=== PATIENT | female | born 1985 | race Hispanic/Latino ===

== ENCOUNTER 2018-11-12 13:52 | Emergency (ER) | payer SELFPAY ==
--- NOTE | 2018-11-12 15:58 | EDPHYS ---
Physician Documentation [facility] Name: Michaelle Vega Age: 33 yrs Sex: Female : 1985 Arrival Date: 11/12/2018 Time: 13:53 Bed 15 Private MD: ED Physician Wild Goode HPI: 11/12 15:56 This 33 yrs old Female presents to ER via Ambulatory with complaints of Rash - pm1 Painful. 15:56 The patient's rash thought to be caused by an unknown cause. The rash is located on the pm1 anterior aspect of right lateral abdomen. The rash can be described as vesicular. Onset: The symptoms/episode began/occurred yesterday. Associated signs and symptoms: Pertinent positives: Pain. Severity of symptoms: in the emergency department the symptoms are worse. Treatment given at home: None. The patient has not experienced similar symptoms in the past. The patient has not recently seen a physician. Pain radiating on right flank with painful rash on right lower abdominal area. 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 - Social history:: Smoking status: Patient/guardian denies using tobacco. - Ebola Screening: : Patient denies travel to an Ebola-affected area in the 21 days before illness onset. ROS: 15:56 Constitutional: Negative for fever, chills, and weight loss, Eyes: Negative for injury, pm1 pain, redness, and discharge, ENT: Negative for injury, pain, and discharge, Neck: Negative for injury, pain, and swelling, Cardiovascular: Negative for chest pain, palpitations, and edema, Respiratory: Negative for shortness of breath, cough, wheezing, and pleuritic chest pain, Abdomen/GI: Negative for abdominal pain, nausea, vomiting, diarrhea, and constipation, Back: Negative for injury and pain, MS/Extremity: Negative for injury and deformity. 15:56 Neuro: Negative for headache, weakness, numbness, tingling, and seizure. 15:56 Skin: Positive for rash, of the anterior aspect of right lateral abdomen and right lower quadrant. Exam: 15:56 Constitutional: This is a well developed, well nourished patient who is awake, alert, pm1 and in no acute distress. Head/Face: Normocephalic, atraumatic. Neck: Trachea midline, no thyromegaly or masses palpated, and no cervical lymphadenopathy. Supple, full range of motion without nuchal rigidity, or vertebral point tenderness. No Meningismus. Chest/axilla: Normal chest wall appearance and motion. Nontender with no deformity. No lesions are appreciated. Cardiovascular: Regular rate and rhythm with a normal S1 and S2. No gallops, murmurs, or rubs. Normal PMI, no JVD. No pulse deficits. Respiratory: Lungs have equal breath sounds bilaterally, clear to auscultation and percussion. No rales, rhonchi or wheezes noted. No increased work of breathing, no retractions or nasal flaring. Abdomen/GI: Soft, non-tender, with normal bowel sounds. No distension or tympany. No guarding or rebound. No evidence of tenderness throughout. Back: No spinal tenderness. No costovertebral tenderness. Full range of motion. 15:56 Skin: Appearance: normal except for affected area, consistent with zoster, on the anterior aspect of right lateral abdomen and right lower quadrant. Vital Signs: 14:02 BP 125 / 75; Pulse 65; Resp 18; Temp 98.4(TE); Pulse Ox 98% on R/A; Weight 63.5 kg (R); tw2 Height 5 ft. 4 in. (162.56 cm) (R); Pain 8/10; 16:13 BP 118 / 72; Pulse 67; Resp 18; Temp 97.8; Pulse Ox 99% on R/A; ph 14:02 Body Mass Index 24.03 (63.50 kg, 162.56 cm) tw2 MDM: 15:56 Patient medically screened. pm1 15:56 Data reviewed: vital signs. Data interpreted: Pulse oximetry: on room air is 98 %. pm1 Interpretation: normal. Counseling: I had a detailed discussion with the patient and/or guardian regarding: the historical points, exam findings, and any diagnostic results supporting the discharge/admit diagnosis, the need for outpatient follow up, to return to the emergency department if symptoms worsen or persist or if there are any questions or concerns that arise at home. Administered Medications: 16:12 Drug: Valtrex 1000 mg Route: PO; ph 16:12 Follow up: Response: No adverse reaction; Medication administered at discharge. ph 16:12 Drug: Fitzgerald 5 mg-325 mg 1 tabs Route: PO; ph 16:12 Follow up: Response: No adverse reaction; Medication administered at discharge. ph Disposition: 11/12/18 15:57 Discharged to Home. Impression: Zoster [herpes zoster]. - Condition is Stable. - Discharge Instructions: Shingles. - Prescriptions for Tylenol- Codeine #3 300-30 mg Oral Tablet - take 2 tablets by ORAL route every 6 hours As needed; 20 tablet. Valtrex 1 g Oral Tablet - take 1 tablet by ORAL route every 8 hours for 7 days; 21 tablet. - Medication Reconciliation Form, Thank You Letter, Antibiotic Education, Prescription Opioid Use form. - Follow up: Emergency Department; When: As needed; Reason: Worsening of condition. Follow up: Private Physician; When: 2 - 3 days; Reason: Recheck today's complaints, Continuance of care, Re-evaluation by your physician. - Problem is new. - Symptoms have improved. Addendum: 11/14/2018 15:35 Co-signature as Attending Physician, Wild Goode MD. g s Signatures: Tamica Crouch RN RN Teodoro Henry NP PORTABLE TRACKMAN pm1 Tangela Wiggins RN RN tw2 Wild Goode MD MD Corrections: (The following items were deleted from the chart) 11/12 16:14 15:57 11/12/2018 15:57 Discharged to Home. Impression: Zoster [herpes zoster]. ph Condition is Stable. Forms are Medication Reconciliation Form, Thank You Letter, Antibiotic Education, Prescription Opioid Use. Follow up: Emergency Department; When: As needed; Reason: Worsening of condition. Follow up: Private Physician; When: 2 - 3 days; Reason: Recheck today's complaints, Continuance of care, Re-evaluation by your physician. Problem is new. Symptoms have improved. pm1
--- NOTE | 2018-11-12 15:58 | ER ---
Nurse's Notes [facility] Name: Michaelle Vega Age: 33 yrs Sex: Female : 1985 Arrival Date: 11/12/2018 Time: 13:53 Bed 15 Private MD: Diagnosis: Zoster [herpes zoster] Presentation: 11/12 14:01 Presenting complaint: Patient states: i have a rash on my right side and my back cruz, tw2 i think its the shingles. Transition of care: patient was not received from another setting of care. Onset of symptoms was November 12, 2018. Risk Assessment: Do you want to hurt yourself or someone else? Patient reports no desire to harm self or others. Initial Sepsis Screen: Does the patient meet any 2 criteria? No. Patient's initial sepsis screen is negative. Does the patient have a suspected source of infection? No. Patient's initial sepsis screen is negative. Care prior to arrival: None. 14:01 Method Of Arrival: Ambulatory tw2 14:01 Acuity: RAJESH 4 tw2 14:04 Note "i even had the chickenpox when i was little". tw2 Triage Assessment: 14:03 General: Appears in no apparent distress. Behavior is calm, cooperative, appropriate tw2 for age. Pain: Complains of pain in right lower quadrant. Derm: Reports increased pain that is 7 out of 10 on a pain scale. 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 - Social history:: Smoking status: Patient/guardian denies using tobacco. - Ebola Screening: : Patient denies travel to an Ebola-affected area in the 21 days before illness onset. Screenin:32 Abuse screen: Denies threats or abuse. Denies injuries from another. Nutritional ph screening: No deficits noted. Tuberculosis screening: No symptoms or risk factors identified. Fall Risk None identified. Assessment: 15:40 General: Appears in no apparent distress. uncomfortable, slender, well groomed, ph Behavior is calm, cooperative, appropriate for age, Denies fever. Pain: Complains of pain in posterior aspect of right lateral abdomen, anterior aspect of right lateral abdomen and right lower quadrant. Neuro: Level of Consciousness is awake, alert, obeys commands, Oriented to person, place, time, situation. Cardiovascular: Capillary refill < 3 seconds in bilateral fingers Patient's skin is warm and dry. Respiratory: Airway is patent Respiratory effort is even, unlabored. Derm: Skin is healthy with good turgor, Skin is pink, warm \\T\\ dry. Rash noted that is itchy, red, raised, vesicular, on right lower quadrant Reports burning, itching. Musculoskeletal: Circulation, motion, and sensation intact. Range of motion: intact in all extremities. Vital Signs: 14:02 BP 125 / 75; Pulse 65; Resp 18; Temp 98.4(TE); Pulse Ox 98% on R/A; Weight 63.5 kg (R); tw2 Height 5 ft. 4 in. (162.56 cm) (R); Pain 8/10; 16:13 BP 118 / 72; Pulse 67; Resp 18; Temp 97.8; Pulse Ox 99% on R/A; ph 14:02 Body Mass Index 24.03 (63.50 kg, 162.56 cm) tw2 ED Course: 13:53 Patient arrived in ED. as 14:02 Triage completed. tw2 14:03 Arm band placed on. tw2 15:31 Tamica Crouch, SAULO is Primary Nurse. ph 15:38 Teodoro Henry NP is PHCP. pm1 15:38 Wild Goode MD is Attending Physician. pm1 15:58 Patient has correct armband on for positive identification. Bed in low position. Call ph light in reach. Side rails up X 1. Noise minimized. Warm blanket given. 15:58 No provider procedures requiring assistance completed. Patient did not have IV access ph during this emergency room visit. Administered Medications: 16:12 Drug: Valtrex 1000 mg Route: PO; ph 16:12 Follow up: Response: No adverse reaction; Medication administered at discharge. ph 16:12 Drug: Magnolia 5 mg-325 mg 1 tabs Route: PO; ph 16:12 Follow up: Response: No adverse reaction; Medication administered at discharge. ph Outcome: 15:57 Discharge ordered by . pm1 16:13 Discharged to home ambulatory, with friend. ph 16:13 Condition: good 16:13 Discharge instructions given to patient, Instructed on discharge instructions, follow up and referral plans. medication usage, Demonstrated understanding of instructions, follow-up care, medications, Prescriptions given X 2. 16:14 Patient left the ED. ph Signatures: Guerita Fuller Patricia, RN RN Teodoro Henry, MALENA MAINTENANCE TRUCK DRIVER pm1 Tangela Wiggins RN RN tw2
[2018-11-12] MEDS ORDERED: VALACYCLOVIR 500 MG TAB ONE (16:07)
[2018-11-12] MEDS ORDERED: HYDROCODONE/APAP 5/325 MG TAB ONE (16:07)
== END 2018-11-12 16:14 | disposition home or self-care (01) ==
LOC: ER 13:52
DX: B02.9 Zoster without complications (principal)
CPT/HCPCS: 99283

== ENCOUNTER 2023-02-06 18:23 | Emergency (ER) | payer SELFPAY ==
--- OUTSIDE RECORDS SUMMARY | 2023-02-06 18:26 | XMS REPORT | Continuity of Care Document ---
:1985 Author Organization [facility] t Address [address] [facility] [place] [address] Care Team Providers Name Role Phone Pcp, Patient Does Not Have Primary Care Physician Unavaildavid e KATHY PAK Attending Clinician Unavailable Td Booth MD Attending Clinician Dennis Key MD Attending Clinician Kathy Pak MD Attending Clinician Harley Kay MD Attending Clinician Keli Vora I Attending Clinician Cezar Vera MD Attending Clinician KELI HUSTON I Attending Clinician Unavailable APARNA WHITE Attending Clinician Unavailable Aparna White MD Attending Clinician JÚNIOR ARAIZA Attending Clinician Unavailable Star Tapia Attending Clinician Unavailable Oh Helm Attending Clinician Unavailable Eva Ryder Attending Clinician Unavailable PEYMAN HAHN Admitting Clinician Unavailable Kathy Pak MD Admitting Clinician Physician, No Primary or Family Admitting Clinician [facility] Payers Payer Name Policy Type Policy Number Effective Date Expiration Date S ourrisa Problems Condition Condition Condition Status Onset Resolution Last Treating Co mments Source Name Details Category Date Date Treatment Clinician Date Cholecysti Cholecysti Disease Resolve 2022-11-18 2022-11-18 [facility] t[facility] tis d 11-17 00:00:00 09:39:10 Health 00:00: 00 Generalize Generalize Disease Resolve 2022-11-18 2022-11-18 [facility] d d d 11-17 00:00:00 09:39:11 Health abdominal abdominal 00:00: pain pain 00 Acute Acute Disease Resolve 2022-11-18 2022-11-18 Naun cholecysti cholecysti d 11-16 00:00:00 09:39:08 Health tis tis 00:00: 00 History of History of Disease Resolve 2022-11-18 2022-11-18 Naun cholelithi cholelithi d 00:00:00 09:39:08 Health asis asis Nausea and Nausea and Disease Resolve 2022-11-18 2022-11-18 Naun vomiting vomiting d 00:00:00 09:39:12 He alth RUQ pain RUQ pain Disease Resolve 2022-11-18 2022-11-18 Naun d 00:00:00 09:39:09 Health Allergies, Adverse Reactions, Alerts Allergy Allergy Status Severity Reaction(s) Onset Inactive Treating Comm ents Source Name Type Date Date Clinician No Known DA [facility] 00:[facility]: [address] No Known DA Active U NONE [facility] 05[facility]24 [facility] Intolera 00:00: [address] No Known DA [facility] Contrast 05-06 [facility] Allergie 00:00: [address] No Known DA [facility] Allergie 00:00: [address] No Known DA [facility] Food 05[facility]06 [facility]ergie 00:00: [address] No Known DA [facility] Other 05-06 [facility] Allergie 00:00: [address] Social History Social Habit Start Date Stop Date Quantity Comments Source Sexual orientation [facility] History of Social 2022-11-14 2022-11-14 [facility] function 00:00:00 00:00:00 Alcohol intake 2020-10-28 2020-10-28 Current [facility] 00:00:00 00:00:00 non-drinker of alcohol (finding) Sex Ass[birth year] At [birth year] Na[facility] Mabry alth 00:00:00 00:00:00 Smoking Status Start Date Stop Date Source Never smoked tobacco [facility] Medications Ordered Filled Start Stop Current Ordering Indication Dosage Frequency Signature Comments Components Source Medication Medication Date Date Medication? Clinician (SIG) Name Name HYDROMORPHO 2022- No 1 dose, Fraser rris NE (PF) 0.5 11-18 [facility] MG/0.5 ML 10:24: 10:30 on Helga INJECTION 33 :00 11/18/22 at SYRINGE 1024, Pyxis Until Helga Override 11/18/22 at 1030 HYDROmorpho 2022- No .2mg 0.2 mg Gerald ris ne (PF) 0.5 11-18 (0.06795 Hea lth mg/0.5 mL 10:16: 11:00 mg/kg), IV injection 01 :00 Push, 0.2 mg EVERY 15 MIN PRN, 3 doses, Starting on Helga 11/18/22 at 1016, Until Helga 11/18/22 at 1100, Severe Pain (7-10) - 2nd Line, Routine, PACU/Recov linnette neostigmine 2022- No Intravenou Naun 1 mg/mL 11-18 s, PRN, Health injection 09:20: 09:56 Starting 00 :19 on Helga 11/18/22 at 0920, Until Helga 11/18/22 at 0956, Routine, Anesthesia Intra-op glycopyrrol 2022- No Intravenou Naun ate 11-18 s, PRN, Health (ROBINUL) 09:20: 09:56 Starting injection 00 :19 on Helga 11/18/22 at 0920, Until Helga 11/18/22 at 0956, Routine, Anesthesia Intra-op ondansetron 2022- No Intravenou [facility] (ZOFRAN) 11-18 s, PRN, Health injection 09:10: 09:56 Starting 00 :19 on Helga 11/18/22 at 0910, Until Helga 11/18/22 at 0956, Routine, Anesthesia Intra-op dexAMETHaso 2022- No Intravenou [facility] ne 11-18 s, PRN, Health (DECADRON) 08:18: 09:56 Starting injection 00 :19 on Helga 11/18/22 at 0818, Until Helga 11/18/22 at 0956, Routine, Anesthesia Intra-op HYDROmorpho 2022- No Intravenou [facility] ne 1 mg/mL 11-18 s, PRN, Healt h injection 08:11: 09:56 Starting 00 :19 on Helga 11/18/22 at 0811, Until Helga 11/18/22 at 0956, STAT, Anesthesia Intra-op fentaNYL 2022- No Intravenou Fraser rris injection 11-18 s, PRN, Health 08:00: 09:56 Starting 00 :19 on Helga 11/18/22 at 0800, Until Helga 11/18/22 at 0956, STAT, Anesthesia Intra-op BUPivacaine 2022- No PRN, Harri s -PF 11-18 Starting Health (SENSORCAIN 07:55: 09:50 on Helga E-MPF) 0.25 00 :15 11/18/22 at % (2.5 0755, mg/mL) Until Helga injection 11/18/22 at 0950, Routine, Intra-op cefTRIAXone 2022- No Intravenou [facility] (ROCEPHIN) 11-18 s, PRN, Healt h 1 g in D5W 07:55: 09:56 Starting 50 mL IVPB 00 :19 on Helga (PREMIX) 11/18/22 at 0755, Until Helga 11/18/22 at 0956, Routine 0.9 % NaCl 2022- No PRN, [facility] 0.9 % 11-18 Starting Health irrigation 07:45: 09:50 on Helga solution 00 :15 11/18/22 at (bottle) 0745, Soln Until Helga 11/18/22 at 0950, Routine, Intra-op propofoL 10 2022- No Intravenou [facility] mg/mL IV 8 08-24 s, PRN, Health DRIP 07:38: 09:56 Starting (PREMIX) 00 :19 on Helga 11/18/22 at 0738, Until Helga 11/18/22 at 0956, Routine, Anesthesia Intra-op lidocaine 2022- No Intravenou H arris (PF) 11-18-24 s, PRN, Health (XYLOCAINE) 07:38: 09:56 Starting 20 mg/mL (2 00 :19 on Helga %) 11/18/22 at injection 0738, Until Helga 11/18/22 at 0956, Routine, Anesthesia Intra-op rocuronium 2022- No Intravenou [facility] injection 11-18-24 s, PRN, Health 07:38: 09:56 Starting 00 :19 on Helga 11/18/22 at 0738, Until Helga 11/18/22 at 0956, Routine, Anesthesia Intra-op midazolam 2022- No Intravenou H arris (PF) 11-18 08-24 s, PRN, Health (VERSED) 07:31: 09:56 Starting injection 00 :19 on Helga 11/18/22 at 0731, Until Helga 11/18/22 at 0956, Routine, Anesthesia Intra-op lactated 2022- No Intravenou Fraser rris Ringers 11-18 08-24 s, Health infusion 07:00: 09:56 Starting 00 :19 on Helga 11/18/22 at 0700, Until Helga 11/18/22 at 0956, Anesthesia Intra-op traMADol Yes [id number] 50mg Take 1 Gerald ris (ULTRAM) 50 8-24 tablet by Hea lth mg tablet 00:00: mouth 00 every 6 hours as needed for Pain traMADol Yes [id number] 50mg Take 1 Gerald ris (ULTRAM) 50 8-24 tablet by Hea lth mg tablet 00:00: mouth 00 every 6 hours as needed for Pain traMADol Yes Cholecystit 50mg Take 1 [facility] (ULTRAM) 50 11-18 is tablet by Hea lth mg tablet 00:00: mouth 00 every 6 hours as needed for Pain traMADol 2022- No Cholecystit 50mg Take 1 [facility] (ULTRAM) 50 11-18 is tablet by He alth mg tablet 00:00: 00:00 mouth 00 :00 every 6 hours as needed for Pain metroNIDAZO 2022- No 500mg 500 mg Fraser rris LE (FLAGYL) 11-17 (8.1 Health 500 mg in 13:00: 15:19 mg/kg), 0.9 % NaCl 00 :16 Intravenou 100 mL IVPB s, EVERY 8 (PREMIX) HOURS, 21 doses, First dose on Tue11/17/22 at 1300, Last dose on Tue11/24/22 at 0500, Administer over 1 Hours, Routine metroNIDAZO 2022- No 500mg 500 mg Fraser rris LE (FLAGYL) 11-17 (8.1 Health 500 mg in 13:00: 15:19 mg/kg), 0.9 % NaCl 00 :16 Intravenou 100 mL IVPB s, EVERY 8 (PREMIX) HOURS, 21 doses, First dose on Tue11/17/22 at 1300, Last dose on Tue11/24/22 at 0500, Administer over 1 Hours, Routine sennosides- 2022- No 1{tbl} QD 1 tablet, [facility] docusate 11-17 Oral, Health sodium 09:00: 18:50 DAILY, 30 (SENNA 00 :32 doses, PLUS) First dose 8.6-50 mg on Tue tablet 1 11/17/22 at tablet 0900, Last dose on Tue12/16/22 at 0900, STAT enoxaparin 2022- No 40mg QD 40 mg Harri s (LOVENOX) 11-17 (0.648 Health injection 09:00: 18:50 mg/kg), 40 mg 00 :32 Subcutaneo us, DAILY, 30 doses, First dose on Tue11/17/22 at 0900, Last dose on Tue12/16/22 at 0900, STAT polyethylen 2022- No 17g 17 g Harri s e glycol 11-17 (0.276 Health 3350 09:00: 18:50 g/kg), (GLYCOLAX) 00 :32 Oral, oral packet EVERY 17 g MORNING, 30 doses, First dose on Tue11/17/22 at 0900, Last dose on Tue12/16/22 at 0900, STAT sennosides- 2022- No 1{tbl} QD 1 tablet, [facility] docusate 11-17 Oral, Health sodium 09:00: 18:50 DAILY, 30 (SENNA 00 :32 doses, PLUS) First dose 8.6-50 mg on Tue tablet 1 11/17/22 at tablet 0900, Last dose on Tue12/16/22 at 0900, STAT enoxaparin 2022- No 40mg QD 40 mg Harri s (LOVENOX) 11-17 (0.648 Health injection 09:00: 18:50 mg/kg), 40 mg 00 :32 Subcutaneo us, DAILY, 30 doses, First dose on Tue11/17/22 at 0900, Last dose on Tue12/16/22 at 0900, STAT polyethylen 2022- No 17g 17 g Harri s e glycol 11-17 (0.276 Health 3350 09:00: 18:50 g/kg), (GLYCOLAX) 00 :32 Oral, oral packet EVERY 17 g MORNING, 30 doses, First dose on Tue11/17/22 at 0900, Last dose on Tue12/16/22 at 0900, STAT acetaminoph 2022- No 1000mg 1,000 mg [facility] en 11-17 (16.2 Health (TYLENOL) 07:44: 18:50 mg/kg), tablet 00 :32 Oral, 1,000 mg EVERY 6 HOURS, 120 doses, First dose on Tue11/17/22 at 0744, Last dose on Tue12/17/22 at 0000, STAT acetaminoph 0 2022- No 1000mg 1,000 mg [facility] en 11-17 (16.2 Health (TYLENOL) 07:44: 18:50 mg/kg), tablet 00 :32 Oral, 1,000 mg EVERY 6 HOURS, 120 doses, First dose on Tue11/17/22 at 0744, Last dose on Tue12/17/22 at 0000, STAT lactated No at 100 [facility] Ringers 11-17 mL/hr, Health infusion 07:43: 15:19 Intravenou 00 :16 s, CONTINUOUS , Starting on Tue11/17/22 at 0743, Until Tue11/18/22 at 1519 metroNIDAZO 2022- No 500mg 500 mg Fraser rris LE (FLAGYL) 11-17 (8.1 Health tablet 500 07:43: 11:18 mg/kg), mg 00 :15 Oral, EVERY 8 HOURS, 21 doses, First dose on Tue11/17/22 at 0743, Last dose on Tue11/23/22 at 2100, STAT traMADol 2022- No 50mg 50 mg Naun (ULTRAM) 11-17 (0.81 Health tablet 50 07:42: 18:50 mg/kg), mg 57 :32 Oral, 4 TIMES DAILY PRN, Starting on Tue11/17/22 at 0742, Until Tue11/18/22 at 1850, Moderate Pain (4-6) - 1st Line, STAT oxyCODONE 2022- No 5mg 5 mg Naun (ROXICODONE 11-17 (0.081 Healt h ) tablet 5 07:42: 18:50 mg/kg), mg 57 :32 Oral, EVERY 6 HOURS PRN, Starting on Tue11/17/22 at 0742, Until Tue11/18/22 at 1850, Severe Pain (7-10) - 1st Line, STAT traMADol 2022- No 50mg 50 mg [facility] (ULTRAM) 11-17 (0.81 Health tablet 50 07:42: 18:50 mg/kg), mg 57 :32 Oral, 4 TIMES DAILY PRN, Starting on Tue11/17/22 at 0742, Until Tue11/18/22 at 1850, Moderate Pain (4-6) - 1st Line, STAT oxyCODONE 2022- No 5mg 5 mg [facility] (ROXICODONE 11-17 (0.081 Healt h ) tablet 5 07:42: 18:50 mg/kg), mg 57 :32 Oral, EVERY 6 HOURS PRN, Starting on Tue11/17/22 at 0742, Until Tue11/18/22 at 1850, Severe Pain (7-10) - 1st Line, STAT ondansetron 2022- No 4mg 4 mg Harri s (ZOFRAN-ODT 11-17 (0.0648 Heal ) 07:42: 18:50 mg/kg), disintegrat 49 :32 Oral, 2 ing tablet TIMES 4 mg DAILY PRN, Starting on Tue11/17/22 at 0742, Until Tue11/18/22 at 1850, nausea and vomiting, STAT ondansetron 2022- No 4mg 4 mg Harri s (ZOFRAN-ODT 11-17 (0.0648 Heal ) 07:42: 18:50 mg/kg), disintegrat 49 :32 Oral, 2 ing tablet TIMES 4 mg DAILY PRN, Starting on Tue11/17/22 at 0742, Until Tue11/18/22 at 1850, nausea and vomiting, STAT HYDROmorpho 2022- No 1mg 1 mg Harri s ne 1 mg/mL 11-16 (0.0162 Healt h injection 1 22:23: 22:39 mg/kg), IV mg 00 :00 Push, ONCE, 1 dose, On Tue11/16/22 at 2223, STAT sodium 2022- No 1000mL at 999 [facility] chloride 11-16 mL/hr, Health 0.9 % 20:49: 22:03 Intravenou infusion 00 :00 s, ONCE, 1 1,000 mL dose, On Tue11/16/22 at 2048 ondansetron 2022-0 2022- No 4mg 4 mg Harri s (ZOFRAN) 11-16 (0.0648 Health injection 4 20:49: 21:02 mg/kg), IV mg 00 :00 Push, ONCE, 1 dose, On Tue11/16/22 at 2048, STAT morphine 4 2022- No 4mg 4 mg [facility] mg/mL 11-16 (0.0648 Health injection 4 20:49: 21:02 mg/kg), IV mg 00 :00 Push, ONCE, 1 dose, On 11/16/22 at 2049, STAT ondansetron No 4mg 4 mg Harri s (ZOFRAN) 11-14 (0.0648 Health injection 4 03:18: 03:37 mg/kg), IV mg 00 :00 Push, ONCE, 1 dose, On 11/14/22 at 0318, STAT morphine 4 2022- No 4mg 4 mg [facility] mg/mL 11-14 (0.0648 Health injection 4 03:18: 03:37 mg/kg), IV mg 00 :00 Push, ONCE, 1 dose, On 11/14/22 at 0318, STAT dicyclomine Yes [id number] 10mg Take 1 [facility] (BENTYL) 10 8-20 capsule by He alth mg capsule 00:00: mouth 4 00 times daily (before meals and nightly) dicyclomine Yes [id number] 10mg Take 1 [facility] (BENTYL) 10 8-20 capsule by He alth mg capsule 00:00: mouth 4 00 times daily (before meals and nightly) dicyclomine 0 Yes [id number] 10mg Take 1 [facility] (BENTYL) 10 8-20 capsule by He alth mg capsule 00:00: mouth 4 00 times daily (before meals and nightly) dicyclomine Yes History of 10mg Take 1 [facility] (BENTYL) 10 8-20 cholelithia capsule by Health mg capsule 00:00: sis mouth 4 00 times daily (before meals and nightly) Vital Signs Vital Name Observation Time Observation Value Comments Source Systolic blood pressure 2022-11-18 11:39:00 139 mm[Hg] [facility] Diastolic blood pressure 2022-11-18 11:39:00 79 mm[Hg] [facility] Heart rate 2022-11-18 11:39:00 79 /min [facility] ealt Body temperature 2022-11-18 11:39:00 36.61 Ro [facility] Respiratory rate 2022-11-18 11:39:00 17 /min [facility] Oxygen saturation in 2022-11-18 11:39:00 96 /min [facility] Arterial blood by Pulse oximetry Body height 2022-11-18 06:20:00 162.6 cm [facility] Body weight 2022-11-18 06:20:00 68.04 kg [facility] BMI 2022-11-18 06:20:00 25.75 kg/m2 [facility] Systolic blood pressure 2022-11-18 11:39:00 139 mm[Hg] [facility] Diastolic blood pressure 2022-11-18 11:39:00 79 mm[Hg] [facility] Heart rate 2022-11-18 11:39:00 79 /min [facility] Body temperature 2022-11-18 11:39:00 36.61 Ro [facility] Respiratory rate 2022-11-18 11:39:00 17 /min [facility] Oxygen saturation in 2022-11-18 11:39:00 96 /min [facility] Arterial blood by Pulse oximetry Body height 2022-11-18 06:20:00 162.6 cm [facility] Body weight 2022-11-18 06:20:00 68.04 kg [facility] BMI 2022-11-18 06:20:00 25.75 kg/m2 [facility] Systolic blood pressure 2022-11-18 11:39:00 139 mm[Hg] [facility] Diastolic blood pressure 2022-11-18 11:39:00 79 mm[Hg] [facility] Heart rate 2022-11-18 11:39:00 79 /min [facility] Body temperature 2022-11-18 11:39:00 36.61 Ro [facility] Respiratory rate 2022-11-18 11:39:00 17 /min [facility] Oxygen saturation in 2022-11-18 11:39:00 96 /min [facility] Arterial blood by Pulse oximetry Body height 2022-11-18 06:20:00 162.6 cm [facility] Body weight 2022-11-18 06:20:00 68.04 kg [facility] BMI 2022-11-18 06:20:00 25.75 kg/m2 [facility] Systolic blood pressure 2022-11-18 10:15:00 143 mm[Hg] [facility] Diastolic blood pressure 2022-11-18 10:15:00 88 mm[Hg] [facility] Heart rate 2022-11-18 10:15:00 69 /min [facility]alt Respiratory rate 2022-11-18 10:15:00 13 /min [facility] Oxygen saturation in 2022-11-18 10:15:00 99 /min [facility] Arterial blood by Pulse oximetry Body temperature 2022-11-18 09:55:00 36.61 Ro [facility] Body height 2022-11-18 06:20:00 162.6 cm [facility] Body weight 2022-11-18 06:20:00 68.04 kg [facility] ealt BMI 2022-11-18 06:20:00 25.75 kg/m2 [facility] ealt Systolic blood pressure 2022-11-18 10:15:00 143 mm[Hg] [facility] Diastolic blood pressure 2022-11-18 10:15:00 88 mm[Hg] [facility] Heart rate 2022-11-18 10:15:00 69 /min [facility] Respiratory rate 2022-11-18 10:15:00 13 /min [facility] Oxygen saturation in 2022-11-18 10:15:00 99 /min [facility] Arterial blood by Pulse oximetry Body temperature 2022-11-18 09:55:00 36.61 Ro [facility] Body height 2022-11-18 06:20:00 162.6 cm [facility] Body weight 2022-11-18 06:20:00 68.04 kg [facility] BMI 2022-11-18 06:20:00 25.75 kg/m2 [facility] ealt Systolic blood pressure 2022-11-14 03:55:00 118 mm[Hg] [facility] Diastolic blood pressure 2022-11-14 03:55:00 79 mm[Hg] [facility] Heart rate 2022-11-14 03:55:00 64 /min [facility] ealt Body temperature 2022-11-14 03:55:00 36.39 Ro [facility] Respiratory rate 2022-11-14 03:55:00 17 /min [facility] Oxygen saturation in 2022-11-14 03:55:00 99 /min [facility] Arterial blood by Pulse oximetry Body height 2022-11-13 23:50:00 162.6 cm [facility] Body weight 2022-11-13 23:50:00 61.689 kg [facility] BMI 2022-11-13 23:50:00 23.34 kg/m2 [facility] Systolic blood pressure 2022-11-14 03:55:00 118 mm[Hg] [facility] Diastolic blood pressure 2022-11-14 03:55:00 79 mm[Hg] [facility] Heart rate 2022-11-14 03:55:00 64 /min [facility] Body temperature 2022-11-14 03:55:00 36.39 Ro [facility] Respiratory rate 2022-11-14 03:55:00 17 /min [facility] Oxygen saturation in 2022-11-14 03:55:00 99 /min [facility] Arterial blood by Pulse oximetry Body height 2022-11-13 23:50:00 162.6 cm [facility] Body weight 2022-11-13 23:50:00 61.689 kg [facility] BMI 2022-11-13 23:50:00 23.34 kg/m2 [facility] Systolic blood pressure 2022-11-14 03:55:00 118 mm[Hg] [facility] Diastolic blood pressure 2022-11-14 03:55:00 79 mm[Hg] [facility] Heart rate 2022-11-14 03:55:00 64 /min [facility] Body temperature 2022-11-14 03:55:00 36.39 Ro [facility] Respiratory rate 2022-11-14 03:55:00 17 /min [facility] Oxygen saturation in 2022-11-14 03:55:00 99 /min [facility] Arterial blood by Pulse oximetry Body height 2022-11-13 23:50:00 162.6 cm [facility] Body weight 2022-11-13 23:50:00 61.689 kg [facility] BMI 2022-11-13 23:50:00 23.34 kg/m2 [facility] Systolic blood pressure 2022-11-18 11:39:00 139 mm[Hg] [facility] Diastolic blood pressure 2022-11-18 11:39:00 79 mm[Hg] [facility] Heart rate 2022-11-18 11:39:00 79 /min [facility] Body temperature 2022-11-18 11:39:00 36.61 [facility] Respiratory rate 2022-11-18 11:39:00 17 /min [facility] Oxygen saturation in 2022-11-18 11:39:00 96 /min [facility] Arterial blood by Pulse oximetry Body height 2022-11-18 06:20:00 162.6 cm [facility] Body weight 2022-11-18 06:20:00 68.04 kg [facility] BMI 2022-11-18 06:20:00 25.75 kg/m2 [facility] Procedures Procedure Date / Time Performed Performing Clinician [facility] INFUSION PUMP 2022-11-18 13:12:16 Kathy Pak [facility] INFUSION PUMP 2022-11-18 13:12:16 Kathy Pak [facility] INFUSION PUMP 2022-11-18 13:12:16 Kathy Pak [facility] AIRWAY 2022-11-18 08:28:52 Delia Muller [facility] AIRWAY 2022-11-18 08:28:52 Delia Muller [facility] TISSUE EXAM 2022-11-18 08:18:00 Harley Kay [facility] TISSUE EXAM 2022-11-18 08:18:00 Harley Kay [facility] TISSUE EXAM 2022-11-18 08:18:00 Harley Kay [facility] LAP,CHOLECYSTECTOMY 2022-11-18 07:10:00 Harley Kay [facility] LAP,CHOLECYSTECTOMY 2022-11-18 07:10:00 Harley Kay [facility] LAP,CHOLECYSTECTOMY 2022-11-18 07:10:00 Harley Kay [facility] BASIC METABOLIC PANEL 2022-11-18 04:52:00 [facility] CBC/DIFF 2022-11-18 04:52:00 Peyman Hahn [facility] PT/INR 2022-11-18 04:52:00 Cezar Varela [facility] PTT 2022-11-18 04:52:00 Cezar Varela A [facility] CBC 2022-11-18 04:52:00 Jovani Peymanra Ebenezer [facility] lt BASIC METABOLIC PANEL 2022-11-18 04:52:00 Jovani Peyman Ebenezer Tapia [facility] CBC/DIFF 2022-11-18 04:52:00 Jovani Peyman [facility] PT/INR 2022-11-18 04:52:00 Valeria Crowley Cezar Buckner [facility] PTT 2022-11-18 04:52:00 Valeria Crowley Cezar Buckner [facility] CBC 2022-11-18 04:52:00 Jovani Peyman [facility] lth PT/INR 2022-11-18 04:52:00 Valeria Crowley Cezar Buckner [facility] PTT 2022-11-18 04:52:00 Valeria Crowley Cezar Buckner [facility] CBC/DIFF 2022-11-18 04:52:00 Jovani Peyman Ebenezer Naun [facility] BASIC METABOLIC PANEL 2022-11-18 04:52:00 Peyman Hahn Ebenezer Tapia [facility] CBC 2022-11-18 04:52:00 Jovani Peymanra Ebenezer [facility] lth ABO/RH CONFIRMATION 2022-11-17 11:17:[facility]22-11-17 11:17:00 [facility]RH [facility]FIRM[facility] 2022-11-17 11:17:[facility] TYPE AND SCREEN 2022-11-17 11:16:00 [facility]-11-17 11:16:00 [facility] TYPE AND SCREEN 2022-11-17 11:16:00 Troy [facility] T&S - COLLECTION 2022-11-17 11:16:00 [facility] 2022-11-17 11:16:00 Troy [facility] T&S - COLLECTION 2022-11-17 11:16:00 Troy [facility] CORONAVIRUS, COVID-19, JOSETTE 2022-11-17 06:36:00 Nwaozo, Glad C H arris [facility] SARS-COV-2, FLU A/B, RSV 2022-11-17 06:36:00 Nwaozo, Glad C [facility] Health CORONAVIRUS, COVID-19, JOSETTE 2022-11-17 06:36:00 Nwaozo, Glad C H virtua [facility] SARS-COV-2, FLU A/B, RSV 2022-11-17 06:36:00 Nwaozo, Glad C [facility] Health SARS-COV-2, FLU A/B, RSV 2022-11-17 06:36:00 Nwaozo, Glad C [facility] CORONAVIRUS, COVID-19, JOSETTE 2022-11-17 06:36:00 Nwaozo, Glad C [facility] U/S ABDOMEN LIMITED 2022-11-16 21:41:33 Emmy [facility] ealt U/S ABDOMEN LIMITED 2022-11-16 21:41:33 Emmy [facility] U/S ABDOMEN LIMITED 2022-11-16 21:41:33 Emmy [facility] ealt BASIC METABOLIC PANEL 2022-11-16 20:56:00 Emmy [facility] CBC/DIFF 2022-11-16 20:56:00 [facility] 2022-11-16 20:56:00 Emmy Td [facility] h LIVER PROFILE 2022-11-16 20:56:00 [facility]ANTITAT[facility] (ONLY 2022-11-16 20:56:[facility] CBC 2022-11-16 20:56:00 Emmy Td [facility] h BASIC METABOLIC PANEL 2022-11-16 20:56:00 Emmy [facility] CBC/DIFF 2022-11-16 20:56:00 [facility] 2022-11-16 20:56:00 Emmy [facility] h LIVER PROFILE 2022-11-16 20:56:00 Emmy Td [facility] BETA-HCG, QUANTITATIVE (ONLY 2022-11-16 20:56:00 Td Booth [facility] FOR ) CBC 2022-11-16 20:56:00 [facility]-16 20:56[facility]00 [facility] BASIC METABOLIC PANEL 2022-11-16 20:56:00 [facility] LIVER PROFILE 2022-11-16 20:56:00 [facility] 2022-11-16 20:56:00 Emmy, Td Magallon [facility] h BETA-HCG, QUANTITATIVE (ONLY 2022-11-16 20:56:00 [facility] CBC 2022-11-16 20:56:00 [facility] 2022-11-14 06:29:00 Júnior Araiza He alth COMPREHENSIVE METABOLIC 2022-11-14 06:29:00 Júnior [facility] PANEL COMPREHENSIVE METABOLIC 2022-11-14 06:29:00 [facility]únior [facility] PANEL LIPASE 2022-11-14 06:29:00 Júnior Araiza [facility] CBC/DIFF 2022-11-14 03:38:00 Júnior Araiza [facility] CBC 2022-11-14 03:38:00 Júnior Araiza [facility] CBC/DIFF 2022-11-14 03:38:00 Júnior Araiza He alth CBC 2022-11-14 03:38:00 Júnior Araiza He alth 12 LEAD EKG 2022-11-14 03:17:00 Júnior Araiza He alth 12 LEAD EKG 2022-11-14 03:17:00 Júnior Araiza [facility] URINALYSIS W/REFLEX TO URINE 2022-11-14 03:14:00 Estefani Araiza [facility] CULTURE URINALYSIS 2022-11-14 03:14:00 Júnior Araiza [facility] URINE CULTURE COLLECTION KIT 2022-11-14 03:14:00 Estefani Araiza [facility] URINALYSIS W/REFLEX TO URINE 2022-11-14 03:14:00 Mechelle Araiza [facility] CULTURE URINALYSIS 2022-11-14 03:14:00 Júnior Araiza [facility] URINE CULTURE COLLECTION KIT 2022-11-14 03:14:00 Mechelle Araiza [facility]/S ABDOMEN LIMITED 2022-11-14 02:58:06 Júnior Araiza [facility] U/S ABDOMEN LIMITED 2022-11-14 02:58:06 Júnior Araiza [facility] Plan of Care Planned Activity Planned Date Details Comments Source Future Scheduled Test 2022-11-26 00:00:00 IMM Influenza [facility] Seasonal (>/= 19 yrs) [code = IMM Influenza Seasonal (>/= 19 yrs)] Future Scheduled Test 2014 00:00:00 Screening for [facility] malignant neoplasm of cervix (procedure) [code = 470662269] Future Scheduled Test 2005 00:00:00 Screening for [facility] malignant neoplasm of cervix (procedure) [code = 178974612] Future Scheduled Test 1985-04-23 00:00:00 COVID-19 Vaccine (#1) [facility] [code = COVID-19 Vaccine (#1)] Encounters Start End Encounter Admission Attending Care Care Encounter Source Date/Time Date/Time Type Type Clinicians Facility Department ID 2022-11-16 2022-11-18 Outpatient 1 PASHA [facility] AVERY [id number] [place] 20:24:00 16:50:00 CHAVEZ [facility] 2022-11-16 2022-11-18 [facility] [id number] [place] 20:24:00 16:50:00 Encounter [place] [id number] [facility] Kathy Pak [facility] .[id number] 1404-08-22 2022-11-18 [facility] [id number] [place] 20:24:00 16:50:00 Encounter [place] [facility] Pasha [facility] 2022-11-18 2022-11-18 [facility] Rahul [facility] [id number] [place] 07:30:00 10:29:00 Harley Jerez 2022-11-18 2022-11-18 Surgery TIFFANI Kay [id number] [place] 07:30:00 10:29:00 Harley Rutledge GENERAL [id number] [facility] .[id number] 6014-08-24 2022-11-18 Anesthesia Keli Huston I TIFFANI ELIZABETH [id number] [place] 07:26:00 09:56:00 Event Cezar Vera GENERAL [id number] [place] [address] .[id number] 4684-08-24 2022-11-18 Anesthesia Cezar Vera [facility] [id number] [place] 07:26:00 09:56:00 Event Keli Huston I [facility] 2022-11-17 2022-11-17 Outpatient KELI HUSTON [facility] [id number] [place] 00:00:00 00:00:00 [facility] 2022-11-17 2022-11-17 Outpatient KELI HUSTON [facility] [id number] [place] 00:00:00 00:00:00 [facility] 2022-11-16 2022-11-16 Emergency [facility] [id number] [place] 21:16:24 21:41:35 [facility] 2022-11-14 2022-11-14 Emergency APARNA WHITE [facility] [id number] [place] 01:05:00 07:59:00 [facility] 2022-11-14 2022-11-14 Emergency Aparna White [id number] [place] 01:05:00 07:59:[address] [place] [address] .2.7.2.6869 [id number] 2821-08-20 2022-11-14 Emergency Aparna White [facility] [id number] [place] 01:05:00 07:59:00 [facility] 2022-11-14 2022-11-14 Emergency JOSE G [facility] [id number] [place] 02:27:32 02:58:09 JÚNIOR Jerez 2022-11-09 2022-11-09 Emergency EM Tapia, HCAVA ER [id number] [facility] 07:17:00 09:47:[address] [place] [address] 2022-11-05 2022-11-05 Emergency EM Alicja [facility] ER [id number] [facility] 03:01:00 05:10:00 Oh Chahal [facility] 2022-06-04 2022-06-04 Emergency EM Alicja [facility] ER [id number] [facility] 18:46:00 20:15:00 Oh Cook [facility] 2022-03-28 2022-03-28 Emergency EM MONICA RyderVA ER [id number] [facility] 01:40:00 04:52:00 Eva 17 Gisela [facility] Results Test Description Test Time Test Comments Results Result Comments Source Pathology - Tissue Exam 2022-11-19 10:52:00 Test Item Value Reference Range Interpretation Comme nts Case Report (test code = [id number]) Surgical Pathology Case: [id number] Authorizing Provider: Harley Kay MD Collected: 11/18/2022 08:18 AM Ordering Location: [facility] OR Received: 11/18/2022 11:19 AM Pathologist: Humza Maddox MD Specimen: Gallbladder, GALLBLADDER FINAL DIAGNOSIS (test code = [id number]) p1yotGNoOJQkvEZvQUMzE 6gyyaCcBUNxsEFrS0Vm jvebJTynMT0tFI9klWhcoDSabZSdIUUfYqBkk0bw n198fIKqz7hrDUJUkqecmEd1gRcxM50qv2X0Qnnt N13knWSvJPK4KAHgYDZbjRKhTIWwPRH5JKEkfDAs H2oiROGvHO3qpjrdMKduYGseLIMdoRS4MKWloJSj F5FaNGQmHQijVGIixhf2MmKtGz3kjSUhtGoyIRpn NWMxNCPvZLheLIBlUtKsCN9bZ8EYTEPQPCJDNMFi BKZFH4zOA0vBMBVIIL9VVFvhmCCaFCXfRuNhCUAU Tq2HTEPwG7kKMZLCYNBJVMGBZ6spSAZnkEBtQD0s F4fZUIPUNKJURCYKPDOdLTVdrc6= Gross Description (test code = 62062) m8mncDKuQPFrtLQSLKQiAHDrFC 4uoBrcvOi8tWoa UMZxksX1qKGcTImpj3jjBDA2d9yxhvWLRsxbPNZr ME5hBWisEZZhCQ4mZmZuHNGdVzSoZVTorXAgduVo BwYhEYCiwIQgnHW0CSYiCD7caoteJRwoQWudZMHv hyF0IJDzmFHmC1FgURHcZL2npwypPYA4UFGOVqxb Qv4zcNYbwAluSdQaLmZaBVBiAUYwWVZspEuoGOYq WNz7sX2AMkoaBMG7ZIUIWvzkFbhtkPidx9ZbrIBd VQOpLVerhPSwEOLxSGJlRGmxHcTYPsTxStY2HkQ0 JMK9QbE2FZo2AAKWJUOuQhS1LXPwTKb7FQy6WNmg zfhuWOn9IVPjKKutrOPwLL6uhTrfUuhmtBpua0Ei dCBcXHNnIFxcaWQgNTEwMDIgXFxkYiBPVlIgIiA4 MyB7NHV0LbC6EJx9ZPERJsAqFwMiKGG5UBhpIRVu VXk2MCz7VDxNVlNrPOF5MjfnSWDrZLG0MIWmOJzg ofqoCNi6MGVpVUjriiZbEUyyKwybTMlqH33rwLKk ZCANClxwbGFpblxlcGljTmVzdERvYzEgDQpccGFy ZLeuzEJzFLZbuSq9PeYrtWouLOVhMIQ4UwC5XFm4 kLQ1ODUljGspOeGgKRA3LSStYTp8fTZxYMDstEk1 IvVpGMT6VoD4DPm1tXnpMLBzyTw9DCDeCJG8WQV3 FFl1wKywWlJhsCpkRBS3YARPMysxbSDmxTqaRHGh QnXiD5CeV6azAA7aZLV2BUFtLFp5ZKOyKmVmC4Sw lJArDKFaXWOzpGHiOG4DSVDeavBQMjedFDFfMBs0 yoCzpmHPMpWkSFVrKNMdYKsaTNYaE3NtgxLiGTgc AU1uHUEvONJ0IGhfFtPdSTAai7u9bCF9sWGgbDV2 sJTgpTgvQU8goBUbGoFBLTdQMIKORgxXIHJhFV4n ALffAMevjfVre5ScDO14mCHumbYgzhJmP0f1QZ5v CXErOEUgqV8dVM17nNGxtrQBBdHvOPw3SqWwOTFq ZHCgaIDalbVpF3IyzHApyoemDCQtiZDxHEXrfZQb t9l7aS1xZKNkek0hdZQaAPbkIOY9yLNwQVZtZKIl AS6qBV4ngQUkDC7mHLYzX4Bzi2gnesXsxH9wFLRl PATnypYEZcpuLIIrPZzEXOPjhXNhXKQwljBhq3Vf YWxpbiBsYWJlbGVkICJHQUxMQkxBRERFUiIgaXMg [file] PWKbudOjRTgudHbooN2pGAy7 Microscopic Description (test code = q3fzxBEhJEIvs4lyDGTzdCOaRiUcHu NcZnYm [id number]) aUVvCZfzzmEpPYthn3HtC4CfKeGoFAfotpPfUHHj ZdscxocsXLZqZCX1rmUwOLAzUVucAUSdBMbwNi5p nZAysForLsPnVDKjz6gueoMLwufkpMu4j8tzGCNg RiV5rWRyVLqgD6ofwkCcyAIgFITjNMv2cB90ZGKq sL4vfDEiFEtoomTiDcS1KJivJHOpXtK8LKTolLTa HIKvR1akSPTjFVebNVZyDOjvqSKlNID5aMsvd0X9 wOGedVDqmBqpXcBgYuDtGqTNv6YiXVy8mWznE9Rm ZTXbUdA8pZOrEKYsBWqfOOMmTVJxomF5wJ68VUlo bgN7kSXwg5Jgk67zh882qL0zxYFtNLF6VTLgNHJf yOVyRUDcKLW6FAWmiTCaT6rtIJKpHP5yntcaRFvr MFakJSNmzAU7RNGlfOVeN1XwYTEkFYmeJNAcydr9 VkXnXe1lbJBmiMmnNKewu0qen9wchOStJqm4TUBf YkXoCkrqEOvev7Kya6ieOOBbkj1wKDL8zYChlUtt r0B1tNVaREHgxESmjwJsOONbOcW5MCtzSH1ajm01 SIVrYTB2qy3weDEuaKbptgQduLRuKWvmD8XiCXJu z493DRXjB7FrVCQvu7G3mnOyNvAbJCCyrPN1aaM4 OUDxYWu5bSWmsxT4stPmwNYzY5rfzC9yEQFrLB9k ixkms5ooXYraWIygPKDauNZ1thA7AOBqoFXkR7Mf hO8mNPHrGPogDQFcxos5YoMrMy1cgEBzeJqdZNzy YmtwYWdlXHBnbmNvbnRccGduZGVjXHBsYWluXHBs NKovISCyTFLaYpYuzFitrHjbeF1cNePgDkLdASlf AX3cYCKsM5dozBItQYGpNLUkW7wdLlEhkN3rfPxi KGmiJwHlHaCwIAPNaKFuu9Azd1VkJqJqlPFfeC9z iHcrlpImrYTbcHGgcWsltFUsKXHeRFEszX7gaHDw bUQotg7klROuYTUtxbrfpMScctghOVrmopOkIYvh acvlYRQlQQpcL7moJpZdGCWjzEalYZeei2UiCXYp XGZzMjJccGFyXHBsYWluXGYxXGZzMTZcbGFuZzEw OsSzmHbcrLizDVhjSoNaOSGvLQpcS4rdAvNoC7Qo BMPrSUYcLWYgMPReXHRrzeAabrExyTglqqI2aER1 LMWjqOpnBHHgeEX6OY24BUOvUJCvioA1yC5wkhSg y4ZbxDueWFVgNSIjmAAeCMVbSYXcLQYsUWctRRZo neQuURhgKUVkPJaadLqtdAraOHXhn0uiUF71R7Sm lNvwjejlIWdrkTBbqHIkkPY9dP0nKcceEDW1qK== [facility] Mxmt0263-70-10 10:52:00 Test Item Value Reference Range Interpretation Comments Case Report (test code Surgical Pathology = [id number]) Case: [id number] Authorizing Provider: Harley Kay MD Collected: 11/18/2022 08:18 AM Ordering Location: [facility] OR Received: 11/18/2022 11:19 AM Pathologist: Humza Maddox MD Specimen: Gallbladder, GALLBLADDER FINAL DIAGNOSIS (test h8uhgUZhRSEuvYCpUMAlJ7 code = [id number]) gpfhLlBCTooQLmP5Ammljg CHlyTP6lPQ6opAfdwPSdlF AvIYNtLbZgv1arz734sQPa e1deCXPCbdaviYb3oChgD7 7oy0N5AabpH24qgOBmIMW4 LVUvCSEatBFnUGYuMEK2PR CgkKLmL6zjUQVaJM6ncazn RQsiENvtMVLgvKS2ZGMufB DjK4GhATEqMNcbLROljul4 HmPqVl3gtRLkiNddDSwzQB AeEUAsIDtwWCWvBhWiXN3c G4RELCZCRLXLVJNxCELKS0 rFV5fWHSTAYB4GDVticOWj QLDlStJcAMRFSe5GBWZdI2 iZUMCMUMBGLCGTJ9rlIZLa vNSzMV3vV0wUNLBAQCEAXJ FTSVMgXHBhcn0= Gross Description (test n9fzhUQoMABmhRHSFOHrCA code = 78209) WuZG7awQobbUg8hEsfCPAr nsE9oNMnXHxwd5tdABK3e3 cjpeIUYghoCJUxZB2qLNoq KLQfEE8uJbVbBAQbCfRtBX BhcGVydzEyMjQwXHBhcGVy cSB3CGSwLP1kcfrpGUhxPF jpAJWkumQ1JDXbbJAwV1Ri PWFwQO7cpuqsJAI0TOXVVq mbIo1ssDFmdOhgLdBxPvBl YXJzZXQwXGZuaWwgQXJpYW c0hY0KIkwhXIQ9SVPKBcih LzzjnTrcx2WacZUgWJSiIP xcaWQgNTEwMDAgXFxkYiBP VcDiWlC7MoS6ATT6JmQ7UO v5VFRWUMFfQrI7EFMcQFh0 HZz4ILceqtjoFMs7GXAySK iqoGUoVD0eeTdyYxtbdQmk z1LdfKLeHPAnKKcmxPBlWV EwMDIgXFxkYiBPVlIgIiA4 WmK9RLJ7LzH0PCw0RGXMDi EgAvByOOH1NKckVOLfNPl5 NVc1GBiBLdVpDTX7GhktQA YyPLO3VDZjYLghrcsbNAp1 IDIgXFxzcyAzIFxcZmwgXF xiC87ndHHpRFXTGancxZEg blxlcGljTmVzdERvYzEgDQ pccGFyZFxsdHJwYXJcdHg3 XiCjkGzoDKGbYRD4QgF9IP h5lJR3GNHhfUclUeNoRRX7 GEFeGIw7kWSpGZYcySi2Me YfDSH4AlW7XCq1gGrdMKDv dVl4JDHlDHU1NES0BXg2lU uhBmUfuCtuNLV0ELYTAbpw xJFnjDdeXZTlNfPiV5WaB7 itHS6bWMW2OPWgPLy9FEJr WvCjD6AwdMAgCPHvDQOgfM RjSC4HLEVjqaKPQmntNTNq UDu4mtUrxcYONmAtBQZiDH TuMVswVVQwK5XrcmWsJSki BJ1kHSDvSXH1BPvjZwQiRC Fnn0p1xEO2hJEbuWG9jZWv jZqjKN8raMDpWzYAQGlHGR IDNydZBSWjHK6uCAnoQDmg iwOcl0JoBC29uVDvrhFehf MsV6c0JH5vDWAwAUUsaX2e QH98mLFyxcBVLlSsACq7Bu FiLVHxLAIimBRpmjVqX5Cm bXBhbmllZCBieSBhIHJlcX Lbb7p2mR2dATKeku3bjHIp IWnxLNO5yCRjAJTtFOThBK 4yBM8vsFTsMG2rVBLhE6En h9vfctSilD2mAFKuWKNroc ANClxwYXIgDQpSZWNlaXZl RRSpbkUln2NzLEosapUhGI JlbGVkICJHQUxMQkxBRERF ErXyhBHiAE2lwU00XJU7UW rpjYddpNLlUOSeOV5fYQR9 snnrBtR2PLntPc01SIwiMx 41IGNtIHdpdGggYSAwLjUg J76bpU7cxJFnC8ZyOS5mRE X6mINpaGUlXAC9m6RqCbUz kEP2BNzazEmmBULfsQXrKB LaarLmAfIqMoXhV68eLVKc wx1uWKHrslJoc5HmtCCiar QiGietXB6bUORfkxJTGsbf ASGgJFbGcYBzk7Uar8UvxX UwxLIfEGCrZGdjGIIqqr3d pS9yFUMzLWFfQCRgyNIlAV FuZCBoeXBlcmVtaWMuIFRo ZFOvjBDha7YwfKCapJMoZZ 4clH3sVTA8BJt8PPN0FSoa mUbfRYW5wpKhxbUfSMP0US ViFVVnZ7ypINJkPxlmKKMc HP5pyZJxFBumqRufGGXqaT 5mzTNpb9WsxLCnRJmoXP55 yVMiRMM4OJ3cmPJjqC60OW GxwkRnxSGxnHEdV1WfJ0Nw uVZdwTHtw5BgnL9uDEBnWA BjbSBpbiBncmVhdGVzdCBk rS4jaqTsn06lFBIgh7aeoO ibwmIkUNutqJg1cmRgkfMy r6OvBYOzd8w5cOfeFKqjHD Z9b2NyFqFvlPO6UC4hSFZ4 fupxGvFcWhbrA29anN0iW6 WuBKHmu0WdKSmjKH5hsW5j YyYEcSNbzUJsr5ZewIMpfL DnVDSiIVYop4TkKYaaTKVk SYMtuo3fKTjpV2GzsGOicT Wcu1MiRIKsZENdNPRzpZmf aGBsIqSCgZBqu6WqpBPmYP 5hBQDiZgWegTWrVpRhsD0b ZF16WTTaZJYwzQGnLmDLGV TeZVMznfFkiRg9HPIrUYY6 yH5lijMuioDtt8OrjZs0iW ZvZInxKATxo5LrqLDvXGEt EmrmSAKiRHrnuJUoHT4SGN LaCDLaQ47qKLOsYOEwCUUj ciANClxzYTMwXGVwaWNYc2 GtKGRBVpSxhIzbrC6nbTW3 BTLkm7bqjPDcgO3KRVDxnI ORYNO6YX2rUMpxQMDiX4Uj L6DvznM1g0owkMdnw3UkfW ZtEO7dwYLnFS6HXLAmywXh ZSkbuPbutG5aJDa7 Microscopic Description n9zxeUOcXCLsw1xrZWWypQ (test code = 553543370) FuZzEwMzNcZnRuYmpcdWMx QClslkLnJFijf3FzG7GvMl AwMFxhbnNpXGRlZmxhbmcx KKFzUDW6xnVzRMIqYCxgWA TnGXxiGv7rwSYvbEwxFbEq QOHzj5zahbNDajdfiPy6a4 apGUXwNpC2dFUlWGbbL2df ijPnhPTyMQFrXRf0fI85DP MbdG4dxEIyUXcjapPmQhZ8 IZzpNMTtFoO7YBXlvCErMP CcM4ifPEPeERwfXVNmNGmw dSXpJXW1aGovy4Y6zBJpbB TitVsuKpUoEkVaIwVGf0Jz VHo0oIzzM3VrFSAaMdJ7jX QgUGFyYWdyYXBoIEZvbnQ7 tE41MQqkilL8cMGgl3Qrt3 5qv611aL1otJLqNXK6OGNe AGTmxOCjHZMeVAB1VUYflG SiA5hzTXOmPU7tzdpfMYai ELcpIGSejSN6PUPlpMJhK5 JcBADgLRacZLKlhzb6WvBs Pm8dkFIofHxzTOhph9jfa2 zmdWIuIes7QMImHxTlOjwb SFvxv5Pbj4wnKISrvu9nOF A3iTHuzPovi2P0rIHnGUPg rWEvkbNyQPJjDnW9FGuxML 2vue80YHAiZPH0cz4nkCAd hCouxuGzaUYvHFhkP5CcSZ Hez742QPFhE7KpJMYop5E9 naUoBgLxDLGlgWW8ufO7GJ WdECq5lLUwutR2zbBivLQt Q7aheP5kQNYmFC9fvcwko7 ivOBwoIVahGDKyzNL5hxI9 OHDtyWKwR4HxpN2sQLFyQH ulSCDsgdu0WvCxRt9sbFVa eTcyMFxzYmtwYWdlXHBnbm NvbnRccGduZGVjXHBsYWlu XHBsYWluXGYwXGZzMjRccW xffZwgeI5vGlRxEoFkEKci FN8xJOMwV5bxkJOpYDOrBH KcA3ujNqFvtL6auZzjDHqi FiTkLxVyBPMXuOAlh4Ujm6 IyTyHorFJrhG1nxIrdctJn dWJzdGFudGlhdGVzIHRoZS PspK7ulBWtuFUtbr2plKFr XHBhclxwbGFpblxmMVxmcz IvKNqlyyjuKMEpGDyiV6kk HuDhHPBuxYmuFNnro4XzVU YxXGZzMjJccGFyXHBsYWlu XGYxXGZzMTZcbGFuZzEwMz NcaGljaFxmMVxkYmNoXGYx PRlyC9rdAeXeY9QyLXVbZV YgSSBoYXZlIHBlcnNvbmFs gCiqzdL2jLE6NHFqwWaiJY ElbIS1PN69PJJkZZUszhT9 nU4yivTwi4AcmZiqDIEkNN NpbWVuKHMpLCByZXZpZXdl ZCBhbmQgYWdyZWVkIHdpdG zodXvuMVBam2scHU10J9Ay bGxvdydzIGludGVycHJldG X6bN8lKqxzIGO4vA== [facility] Qllc5555-02-76 10:52:00 Test Item Value Reference Range Interpretation Comments Case Report (test code Surgical Pathology = [id number]) Case: [id number] Authorizing Provider: Harley Kay MD Collected: 11/18/2022 08:18 AM Ordering Location: [facility] OR Received: 11/18/2022 11:19 AM Pathologist: Humza Maddox MD Specimen: Gallbladder, GALLBLADDER FINAL DIAGNOSIS (test c9gjyUUnDUPluHNjVKAjH0 code = 11397656) qmmdUmZVHmdUCxR8Dcwtgo HWwdYX1iCH0loFdsjWTkiV WhFGLzHsNml0ewe110pVSs m3skLODJegpvhPq2yRnpQ9 8hq5V5RqlmV64xlVDfWPI1 MIXcIGXiaKZqNMAjBWK7FJ EvnQAuM3cpYBVnGP7qubwb YRtwBQynFJWqmDZ4BOMmcW XuG9GpXEBzOPtyCDSunda7 QfNuWu4fvNSjgFbaVWjrRY DkSHCjCQdfNOIhRpRlBD0h G2XDUTZPFKIMPDLjPTFKP3 hQD1sRNEZCZX1NUJvojRDr GSHmGuKwWIFBWu8KVGCkT8 pGDYEHRZFUPKSNS0thFKLv wLXiVG4tV8vLXWKJJXFNTJ FTSVMgXHBhcn0= Gross Description (test h9zadYXsUMDdcMMKPPFgMT code = 77018) QjDU9zvKcmiTm5fVigHIQn iwZ6iZJkSJlfc6irGDB0z9 mghkLDDchqFZQrYB4hUPdu XUWxAH8rVwSwBIKkIiHdQC BhcGVydzEyMjQwXHBhcGVy kNW8FEBgDV7qqyxqAQccDG buGUQansP2CRWtcVHbS7Lx IHFbLE6yjgvjNUR9KFFUOa ecAp0ggBSmtOniBeQmFuQq YXJzZXQwXGZuaWwgQXJpYW p8hI5ASzoiFWJ1HFXYQmpt XvkpfFyhk4ZbyVYrMIUwMW xcaWQgNTEwMDAgXFxkYiBP NlYsUlG5PuT1NND2TjI7KW x9CFCDIRBwLfW8KNJjNZg9 FRm2KDubgtamZVy1VQPnQS znjGNgLG4qoYqzBvkphMpg e9ExsIZeRYDdPGbrdVYwQR EwMDIgXFxkYiBPVlIgIiA4 ThR0WDG0RaK5NWl3QBEVFf RdAlCdECZ3WJfcURAwEPq5 KYj9GDqTVvBiGUC9XwrgNQ SoMKN0CSUhHIrnzeemKUm6 IDIgXFxzcyAzIFxcZmwgXF igG58stSBqJIYEObhhjMYq blxlcGljTmVzdERvYzEgDQ pccGFyZFxsdHJwYXJcdHg3 IhCzbUhjWAFgJKQ7IfA7GL u7vSO1EIYxcLiqVqBrVQJ2 OPFgDIb2hQYoRTFipTu9Yo QzFUD8ToR6XTe1yVkfSUSx lCe8CSWwCBY5LAD9WGd0jT drTdMhcJhvWNR4TCMTIfah zTJwbPsfUTNpQtBdC1EbK8 opZM4xLJU6RBFbAYv5ALUz NpGmC9IaqWIkGHGtKXTreL NqCH1EFEGprzIRCmltDPYf IEl5ukFnnbYJYaFvGTSdYC CeUOxbIMTcM7EyivZlHDoc AN6tADSzXBH8BQkaTiBqOB Fbl9h2sVS9kGYtyZF5kQSu pAxvJM9qhVSjYrBJCBiCPC IYMzlPIFWkJQ4lPHecSZqr ukXaw7OwUW66nSVejmGanq YkR0g5SX8yDYGfYTNitA6i KE84gCHbxmWOHfRtLMk7Tq IcQQEpQRRdlDRfzfXuL5Gd bXBhbmllZCBieSBhIHJlcX Yya6s0qF3sQYLuxz4pbRAr GYcaLIH8rFItIZIiZTQwCW 3wSY9zeEFuIL5cQBTuC1Ss m2tagcXrxZ0kIIWjCMBigu ANClxwYXIgDQpSZWNlaXZl LSScmfWtj7VlDYyluaWnQM JlbGVkICJHQUxMQkxBRERF IkRcpTZzMH3jhG01BEG9JS ockLbknRZzBDPfBT0gDGX5 vosrKmV4AMawCl53NQrbMq 41IGNtIHdpdGggYSAwLjUg Y91ioZ2nxQJlV0KpFM0xKD V8bPFqnOUuNZM0r0YrPlMh tMI8DIficEsjOOFvdMYtTV NsloOfGlAnTrYnY17tMANt pi5aTLXokbTqh5RgoWBzii YzFkevGN8bSOJisjFIZltl VPAeCLpRmBFxr7Vyi3BbmH RdtNYuKVJnICfjTVKxvh7q cR5jEUAhJKQtLDEbtNLcMV FuZCBoeXBlcmVtaWMuIFRo ZQIutWAgg4NwaUQogSUaHF 0geH8jLGO3INx2FHC6PIvj qJgwQIS9nrJifzZsRJW8EZ BrOHWqW9ptDTKvWmnfUUAb TT5dmATlBHswzCigDPDsvB 8tuPKki9EyfSXxFTkqSG80 fLRyUYK5IC6jfXKlkA86LL KsdcEibYQabYKhA6GwD2Il yPNyvORrl3RevD6wYQWsOT BjbSBpbiBncmVhdGVzdCBk aL9yrkPrl29pHYQec6rluG jkswRwSGzmoFu6ntFvnmXy p8FcMIYwm2z8aVvlXWhxQJ O9p0NlYoXbxBR8FV3hRMF4 xlevHdWuAkfeA40plQ4oK7 VzELMoz2IjMVipUU7hpE5t CnLGoXSkjFVak9WjeJJppW AqQSYeMHNgg9KyNHimHXWr UQCssv2bIZlsB7SlmAFwbA Pog8EyIDMoABHxANGbtQbq bKRmSdMEvWMhm8FxePPqBH 7yMGTtDiNflEKvEtDkrC2s XE29POQqHDBmcVBoAmRUWM SuEKQztnIuxMf8MBQaZAB0 oG2xluTsktXtv0JysTw4uZ WiUBnjHAUgz3TcsAPxYTNe PjhrGQQnBQsseJQdSR8ITS AoEEAgH10zQKOiQSGdMMRs ciANClxzYTMwXGVwaWNYc2 SuNLTOOmKosZlzmH8nwBT6 RXBun7ygvNKhxO9CXTXjmX PTBEN8NN3jKVfoCHYkG1Gz M6HscoO3x4jctOhjt6JpdO HkUP6yqMEsFC2QFROegkHr WCoyjFxakN5zTKp4 Microscopic Description y1byeLUeZZJpw3hwLBVtjP (test code = [id number]) FuZzEwMzNcZnRuYmpcdWMx RHfwswIeWImfv5BaX7QpDv AwMFxhbnNpXGRlZmxhbmcx ELCmILD4tcHlIWVnSYvwTR FcQXfsGn8tzFNcsBpzVkYn VXIxe3dfgeMSypeauSh1q1 lbZFFlNfE7ePMwQNgrB4cm tbWodMMqOQRaGJf6gU28CS HesQ7sqLZfYTzinhLeIzM8 GEzzCUNtKmU5NVVhhMDqKU ErV8foJFSoZNneGRIuROgo sVIhFXV1kEezk9L3fANrwP UvcZgqUnTvRbZkNbKYi0Gt VJb0oVcjV6YjMCMpDrI4eX QgUGFyYWdyYXBoIEZvbnQ7 qA83NVboaiH7fEExe0Tua0 3lg294uZ4egKOfWNV8KZIq DUOveHSfCCFuZVX3OWPzoW VtG1diNAFcNF2luiygWZjr IXjyZFVlmXJ0OTCyyDQcM2 KqSFIwWBljBIJfxot3NyGf Ki0zvJFatObjAFhbh2lkz3 ttdVOrUoo8XWEcRqVpWbnt PNmmt6Vqj9iqGELdwb8vTO Z2bRWidZrlz9U2iMUkBCWr yFItwxAkMIRaNjE8RVgdXZ 8zht42BZMzJVC6tt6whXMo zSvxslRtkYWcWXnmK7ExCX Whf192MRSnH8NjNLYqj0Q6 kuEmRjAsVAZirWM9mbH3JZ IlQGa2iUCskzJ8qnMveIBn S0tcoJ2cBZGvYO8qfmbcc4 euHNsyRPinRGQanOT4iqR2 FXYipKRzZ3OcgN9zEODyCH nrGDQtepn5RxLmVc8buUCa eTcyMFxzYmtwYWdlXHBnbm NvbnRccGduZGVjXHBsYWlu XHBsYWluXGYwXGZzMjRccW ajoQrcaA0hZxZxGaKvALzv CY8tBOAjW1owaEOgXKTzFF WiJ9iyXmXskT4axLzoEBke LkQzXvCzZHZXaZOsv0Ozr1 CeXkSssFQmnF5bbExjhbHn dWJzdGFudGlhdGVzIHRoZS QxqC4nwHVgbVJpay2saDAd XHBhclxwbGFpblxmMVxmcz DxLCyruuimVIGdDBpdC4hg LcQtSKGkiRcqTEpie7DiLP YxXGZzMjJccGFyXHBsYWlu XGYxXGZzMTZcbGFuZzEwMz NcaGljaFxmMVxkYmNoXGYx QUxeO8cmStKjM1ZdRKFhTY YgSSBoYXZlIHBlcnNvbmFs yBpmntX0hLG0OGPalQurJE FuvKF3HW62BVLtKIRldzK6 dU6tgmCqx7AxiUtfNJHpSL NpbWVuKHMpLCByZXZpZXdl ZCBhbmQgYWdyZWVkIHdpdG orsAqqVDCrc8rkUP15X2Mj bGxvdydzIGludGVycHJldG Z0lL6zTfeyKPW5jC== [facility], [facility], [id number] 08:06:11 Test Item Value Reference Interpretation Comments Range COVID-19 Not Detected Not Detected INTERPRETATION: (SARS-COV-2) (test No detect able code = 18783-7) levels of SARS-CoV-2 Coronavirus (COVID-19) were present in this patient's sampl e by this test. A not detected result does not exclude the possibility of active infectio n with this virus due to other factors that ma y affect the results such as a poorly collected sample, viral titers below th e limit of detection of th e assay, and the infrequent possibility of inhibitors in the sample. Thi s result should b e interpreted in conjunction wit h clinical, radiographic, and other laboratory findings and should not be used as the alvino e indicator of active infectio n with SARS-CoV-2 Coronavirus (COVID-19). ASHLEE (test code = COMMENT: This ASHLEE) Cep[employer] Xpert Xpress SARS-CoV-2 real-time PCR test was developed, and its performance characteristics determined by the [facility] molecular diagnostic Laboratory and is acceptable for patient testing. It has been approved for patient testing by the FDA under the Emergency Use Authorization pathway. This laboratory is certified under federal CLIA regulations to perform this type of high complexity testing. Lab Interpretation Normal (test code = 17153-3) [facility], [facility], [id number] 08:06:11 Test Item Value Reference Interpretation Comments Range COVID-19 Not Detected Not Detected INTERPRETATION: (SARS-COV-2) (test No detect able code = 31117-2) levels of SARS-CoV-2 Coronavirus (COVID-19) were present in this patient's sampl e by this test. A not detected result does not exclude the possibility of active infectio n with this virus due to other factors that ma y affect the results such as a poorly collected sample, viral titers below th e limit of detection of th e assay, and the infrequent possibility of inhibitors in the sample. Thi s result should b e interpreted in conjunction wit h clinical, radiographic, and other laboratory findings and should not be used as the alvino e indicator of active infectio n with SARS-CoV-2 Coronavirus (COVID-19). ASHLEE (test code = COMMENT: This ASHLEE) Cepheid Xpert Xpress SARS-CoV-2 real-time PCR test was developed, and its performance characteristics determined by the [facility] molecular diagnostic [facility] and is acceptable for patient testing. It has been approved for patient testing by the FDA under the Emergency Use Authorization pathway. This laboratory is certified under federal CLIA regulations to perform this type of high complexity testing. Lab Interpretation Normal (test code = 30606-9) [facility], [facility], [id number] 08:06:11 Test Item Value Reference Interpretation Comments Range COVID-19 Not Detected Not Detected INTERPRETATION: (SARS-COV-2) (test No detect able code = 52944-2) levels of SARS-CoV-2 Coronavirus (COVID-19) were present in this patient's sampl e by this test. A not detected result does not exclude the possibility of active infectio n with this virus due to other factors that ma y affect the results such as a poorly collected sample, viral titers below th e limit of detection of th e assay, and the infrequent possibility of inhibitors in the sample. Thi s result should b e interpreted in conjunction wit h clinical, radiographic, and other laboratory findings and should not be used as the alvino e indicator of active infectio n with SARS-CoV-2 Coronavirus (COVID-19). ASHLEE (test code = COMMENT: This ASHLEE) HipLogiqert Xpress SARS-CoV-2 real-time PCR test was developed, and its performance characteristics determined by the [facility] molecular diagnostic [facility] and is acceptable for patient testing. It has been approved for patient testing by the FDA under the Emergency Use Authorization pathway. This laboratory is certified under federal CLIA regulations to perform this type of high complexity testing. Lab Interpretation Normal (test code = 60929-5) [facility]-CoV-2 RNA Resp Ql [id number] 08:06:11 Test Item Value Reference Range Interpretation Comments Hospitalized? (test No code = 29208-1) ICU? (test code = No 74399-9) Symptomatic as defined No by CDC? (test code = 27905-0) Employed in Unknown Healthcare? (test code = 13342-8) Resident in a Unknown congregate care setting (including nursing homes, residential care for people with intellectual and developmental disabilities, psychiatric treatment facilities, group homes, board and care homes, homeless skilled nursing, foster care or other): (test code = 47380-5) ? (test code = Unknown 93591-5) SARS-CoV-2 RNA Resp Ql NOT DETECTED Not Detected INTER PRETATION: No JOSETTE+probe (test code = detec table levels 74149-6) of SARS-CoV-2 Coronavirus (COVID-19) were present in this patient's sampl e by this test. A no t detected result does not exclud e the possibility of active infectio n with this virus due to other factor s that may affect the results such as a poorly collecte d sample, viral titers below th e limit of detect ion of the assay, a nd the infrequent possibility of inhibitors in t he sample. This re sult should be interpreted in conjunction wit h clinical, radiographic, a nd other laborator y findings and sh ould not be used as the sole indicator of active infectio n with SARS-CoV-2 Coronavirus (COVID-19). COMMENT: This [employer] Xpert Xpress SARS-CoV-2 real-time PCR test was developed, and its performance characteristics determined by the [facility] molecular diagnostic Laboratory and is acceptablefor patient testing. It has been approved for patient testing by the FDA under the Emergency Use Auth orization pathway. 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 MeasurementsIntervals Parker Rate: 62 P: 68PR: 146 QRS: 76QRSD: 119 T: 68QT: 387 QTc: 392 Interpretive StatementsSINUS RHYTHMLOW QRS VOLTAGE IN PRECORDIAL LEADS [QRS DEFLECTION < 1.0 mV IN CHEST LEADS]INCOMPLETE RIGHT BUNDLE BRANCHBLOCK [90+ ms QRS DURATION, TERMINAL R INV1/V2,40+ ms S IN I/aVL/V4/V5/V6]Electronically Signed On 11-15-2022 9:22:17 CDT by Tom Soriano M.D.[facility] METABOLIC [id number] 08:37:00 Test Item Value Reference Range Interpretation Comments SODIUM (test code = 142 mmol/L 136-145 N NA) POTASSIUM (test code 3.5 mmol/L 3.5-5.1 N = K) CHLORIDE (test code 111 mmol/L 98-107 H = CL) CARBON DIOXIDE (test 27 mmol/L 21-32 N code = CO2) GLUCOSE (test code = 115 mg/dL 65-99 H GLU) BLOOD UREA NITROGEN 14 mg/dL 7-18 N (test code = BUN) GLOMERULAR 118 The Glomerular FILTRATION RATE Filtration R ate is a (test code = GFR) calculated parameterbased on serum Creatinine, pat ient age and sex. GFR va luesless than 60 mL/min/ 1.73 square meters a re indicative ofCh ronic Kidney Disease. Values less than 15 mL/min/1.73squa re meters indicate Kidney failure. The calculation for GFR is based on the CK D-EPI (2020) calculat ion. This formulais race indifferent and is the recommended for vivian for GFRby the Natio nal Kidney Foundati on for Adults.The GFR will not calculate if th e sex is unknown or if thepatient's ag e is <18 years. CREATININE (test 0.6 mg/dL 0.6-1.0 N code = CREAT) CALCIUM (test code = 8.5 mg/dL 7.8-10.9 N CA) HEPATIC FUNCTION [id number] 08:37:00 Test Item Value Reference Range Interpretation Comments TOTAL PROTEIN (test 7.1 g/dL 6.4-8.2 N code = PROT) ALBUMIN (test code = 3.7 g/dL 3.4-5.0 N ALB) GLOBULIN (test code = 3.4 gm/dL 2.3-3.5 N GLOB) ALBUMIN/GLOBULIN 1.1 1.5-2.2 L RATIO (test code = A/G) BILIRUBIN TOTAL (test 0.2 mg/dL 0.0-1.1 N code = BILT) BILIRUBIN DIRECT <0.1 mg/dL 0.05-0.3 N (test code = BILD) BILIRUBIN INDIRECT 0.1 mg/dL 0.0-0.6 N (test code = BILIND) SGOT/AST (test code = 16 U/L 15-37 N Report ing units: AST) International U nits/L SGPT/ALT (test code = 23 U/L 10-30 N Report ing units: ALT) International U nits/L ALKALINE PHOSPHATASE 81 U/L 45-117 N TOTAL (test code = ALKP) [id number] 08:37:00 Test Item Value Reference Range Interpretation Comments LIPASE (test code = 268 U/L 73-393 N Reportin g units: LIP) International U nits/L - US ABDOMEN [id number] 08:31:00 [facility] 1985 Sex: F Avella: JULIO St: [facility] 1985 Age/S: 37/F [address] Unit #: [id number] Loc: [place]ED [place], [place] [address] Phys: Albina Cruz Acct: [id number] Dis Date: Status: REG ER PHONE #: [phone] Exam Date: 11/09/2022802 FAX #: [phone] Reason: RUQ PAIN EXAMS: CPT CODE: [id number] US ABDOMEN LTD 77241 ULTRASOUND: - US ABDOMEN LTD History: RUQ PAIN Comparison: None available. Findings: The limitedly visualized portion of the liver has relatively increased echogenicity. No intrahepatic ductal dilation is seen. Cholelithiasis is noted.. Nondependent density along the wall measuring 4 x 5 mm likely reflects a small polyp this can be reevaluated outpatient follow-up. There is no gallbladder wall thickening or pericholecystic free fluid The common bile duct measures The pancreas is incompletely visualized. The right kidney measuring 9.7 cm there is no hydronephrosis. Visualized portions of the aorta and IVC are normal. Impression: Cholelithiasis without sonographic evidence of acute cholecystitis Nondependent density along the wall measuring 4 x 5 mm likely reflects a small polyp this can be reevaluated outpatient follow-up. The appearance the liver is nonspecific but may reflect steatosis versus underlying parenchymal disease Electronically Si gned by CEM MAGANA M.D. on 11/09/2022 at 0831 Reported and signed by: CEM MAGANA M.D. Facility ACR Accreditation for Ultrasound - April 2011 CC: Albina Cruz; Star Tapia MD Technologist: ALBERT BOLDEN RDMS,(RVT) Transcribed Date/Time/By: 11/09/2022 (0831): By: [email or web address] Orig Print D/T: S: 11/09/2022 (0834) PAGE 1 Signed ReportUA RFLX MICR CULT IF [id number] 07:50:00 Test Item Value Reference Range Interpretation Comments UA COLOR (test code = COLU) Light-Yellow YELLOW UA APPEARANCE (test code = Clear CLEAR APPU) UA GLUCOSE DIPSTICK (test Normal NORMAL code = DGLUU) UA BILIRUBIN DIPSTICK (test Negative NEGATIVE code = BILU) UA KETONE DIPSTICK (test Negative NEGATIVE code = KETU) UA SPECIFIC GRAVITY (test 1.022 1.000-1.032 N code = SGU) UA BLOOD DIPSTICK (test code Negative NEGATIVE = GUERA) UA PH DIPSTICK (test code = 5.5 5.0-9.0 N POORNIMA) UA PROTEIN DIPSTICK (test Negative NEGATIVE code = PROU) UA UROBILINIOGEN DIPSTICK Normal NORMAL (test code = URO) UA NITRITE DIPSTICK (test Negative NEGATIVE code = RITESH) UA LEUKOCYTE ESTERASE Negative NEGATIVE DIPSTICK (test code = LEUU) UA WBC (test code = WBCU) 3-5 0-5 UA CULTURE NEEDED? (test Criteria not met code = UACULT) SOURCE: URINESPECIMEN DESCRIPTION: CCIndication for culture: RiskForSepsis-no oth srcUA [id number] 07:50:00 Test Item Value Reference Range Interpretation Comments UA RBC (test code = RBCU) 0-2 0-5 UA EPITHELIAL CELLS (test code = EPIU) 11-20 0-10 UA MUCUS (test code = MUCU) FEW NONE-FEW SOURCE: URINESPECIMEN DESCRIPTION: CCIndication for culture: RiskForSepsis-no [facility] srcCBC W/AUTO [id number] 07:43:00 Test Item Value Reference Range Interpretation Comments WHITE BLOOD CELL (test code = 6.0 K/mm3 4.8-10.8 N WBC) RED BLOOD CELL (test code = RBC) 4.49 M/mm3 4.2-5.4 N HEMOGLOBIN (test code = HGB) 11.7 gm/DL 12.0-16.0 L HEMATOCRIT (test code = HCT) 37.3 % 34.7-43.3 N MEAN CELL VOLUME (test code = 83.1 fL 81-99 N MCV) MEAN CELL HGB (test code = MCH) 26.1 pg 27-31 L MEAN CELL HGB CONCETRATION (test 31.4 gm/dL 33-37 L code = MCHC) RED CELL DISTRIBUTION WIDTH (test 14.6 % 11.5-14.5 H code = RDW) PLATELET COUNT (test code = PLT) 261 X10(3) 130-400 N MEAN PLATELET VOLUME (test code = 9.0 fL 9.4-12.4 L MPV) NEUTROPHIL % (test code = NT%) 47.1 % 51.5-79.7 L IMMATURE GRANULOCYTE % (test code 0.200 % 0.108-0.322 N = IG%) LYMPHOCYTE % (test code = LY%) 42.4 % 14-40 H MONOCYTE % (test code = MO%) 7.6 % 4.0-10.2 N EOSINOPHIL % (test code = EO%) 2.0 % 0-4.1 N BASOPHIL % (test code = BA%) 0.7 % 0.1-0.7 N NUCLEATED RBC % (test code = 0.0 % 0-0 N NRBC%) NEUTROPHIL # (test code = NT#) 2.8 K/mm3 2.5-8.6 N IMMATURE GRANULOCYTE # (test code 0.010 K/mm3 0.0052-0.0224 N = IG#) LYMPHOCYTE # (test code = LY#) 2.6 K/mm3 1.1-3.6 N MONOCYTE # (test code = MO#) 0.5 K/mm3 0.3-0.9 N EOSINOPHIL # (test code = EO#) 0.12 # 0.0-0.4 N BASOPHIL # (test code = BA#) 0.04 K/mm3 0.0-0.2 N NUCLEATED RBC # (test code = 0.00 K/mm3 0.00-0.20 N NRBC#) UR HCG [id number] 06:34:00 Test Item Value Reference Range Interpretation Comments UR HCG QUAL (test code = HCGQLU) NEGATIVE UPG RESULT: negativePERFORMED BY: [id number] LOT # : [id number] EXPIRATION DATE: 12/02/23CG PROCEDURAL CONTROL VERIFIED YKIT LOT # [id number]. DATE 12/02/23- ABDOMEN [id number] 04:14:00 [facility] 1985 Sex: F Avella: JULIO St: REG Name:NELIDA JUSTICE [facility] : 1985 Age/S: 37/F [address] [facility] Unit #:[id number] Loc: [place]ED [place], [place] [address] Phys: Yoel Daniels NP Acct: [id number] Dis Date: Status: REG ER PHONE #: [phone] Exam Date: 11/05/2022347 FAX #: [phone] Reason: abdominal pa in EXAMS: CPT CODE: [id number] US ABDOMEN LTD 09245 HISTORY: Abdominal pain COMPARISON: None FINDINGS: Gallstones and sludge are noted within the gallbladder. Gallbladder is distended with upper normal gallbladder wall. The common bile duct is within normal limits measuring 4 mm. The liver is homogene ous in appearance with no focal liver lesion identified. Doppler interrogation of the portal vein demonstrates normal flow. The visualized right kidney demonstrates no significant abnormalities. The pancrease is partially obscured without significant abnormality. IMPRESSION: 1. Stone noted in the gallbladder neck with gallbladder sludge present within distended gallbladder. No biliary dilatation. at 0414 Reported and signed by: GEOFF MCKEON M.D. Facility ACR Accreditation for Ultrasound - April 2011 CC: Oh Helm MD; Yoel Daniels NP Technologist: CHRISTO DEL CID RDMS,RVT Transcribed Date/Time/By: 11/05/2022 (0414) : By: [email or web address] Orig Print D/T: S: 11/05/2022 (0412) PAGE 1 Signed ReportBASIC METABOLIC [id number] 03:53:00 Test Item Value Reference Range Interpretation Comments SODIUM (test code = 142 mmol/L 136-145 N NA) POTASSIUM (test code 3.3 mmol/L 3.5-5.1 L = K) CHLORIDE (test code 107 mmol/L 98-107 N = CL) CARBON DIOXIDE (test 28 mmol/L 21-32 N code = CO2) GLUCOSE (test code = 122 mg/dL 65-99 H GLU) BLOOD UREA NITROGEN 13 mg/dL 7-18 N (test code = BUN) GLOMERULAR 97 The Glomerular FILTRATION RATE Filtration R ate is a (test code = GFR) calculated parameterbased on serum Creatinine, pat ient age and sex. GFR va luesless than 60 mL/min/ 1.73 square meters a re indicative ofCh ronic Kidney Disease. Values less than 15 mL/min/1.73squa re meters indicate Kidney failure. The calculation for GFR is based on the CK D-EPI (2020) calculat ion. This formulais race indifferent and is the recommended for vivian for GFRby the Natio nal Kidney Foundati on for Adults.The GFR will not calculate if th e sex is unknown or if thepatient's ag e is <18 years. CREATININE (test 0.8 mg/dL 0.6-1.0 N code = CREAT) CALCIUM (test code = 8.9 mg/dL 7.8-10.9 N CA) HEPATIC FUNCTION [id number] 03:53:00 Test Item Value Reference Range Interpretation Comments TOTAL PROTEIN (test 7.6 g/dL 6.4-8.2 N code = PROT) ALBUMIN (test code = 4.1 g/dL 3.4-5.0 N ALB) GLOBULIN (test code = 3.5 gm/dL 2.3-3.5 N GLOB) ALBUMIN/GLOBULIN 1.2 1.5-2.2 L RATIO (test code = A/G) BILIRUBIN TOTAL (test 0.2 mg/dL 0.0-1.1 N code = BILT) BILIRUBIN DIRECT <0.1 mg/dL 0.05-0.3 N (test code = BILD) BILIRUBIN INDIRECT 0.1 mg/dL 0.0-0.6 N (test code = BILIND) SGOT/AST (test code = 20 U/L 15-37 N Report ing units: AST) International U nits/L SGPT/ALT (test code = 25 U/L 10-30 N Report ing units: ALT) International U nits/L ALKALINE PHOSPHATASE 94 U/L 45-117 N TOTAL (test code = ALKP) [id number] 03:53:00 Test Item Value Reference Range Interpretation Comments LIPASE (test code = 343 U/L 73-393 N Reportin g units: LIP) International U nits/L PROTHROMBIN [id number] 03:38:00 Test Item Value Reference Interpretation Comments Range PROTHROMBIN TIME 10.7 SECONDS 9.4-12.5 N PATIENT (test code = PTP) INTERNATIONAL 0.93 0.8-1.2 N Recommended Th erapeutic NORMAL RATIO (test PT Ratios For Oral code = INR) AnticoagualantT herapy. CONDITION INT'L NORMALIZED PT R --------- ------ Prophylaxis of venous thrombosis 2.0 - 3.0in high risk medic al or surgicalpatient s, treatment of venousthrombosi s, prevention of e mbolism. Prevention of r ecurrent embolism, 3.0 - 4.5or treatment of pa tients with mechanical prosthetic heart valves. IS THE PATIENT ON ANY ANTICOAGULANTS? NTHROMBOPLASTIN TIME [id number] 03:38:00 Test Item Value Reference Range Interpretation Comments THROMBOPLASTIN TIME PARTIAL 28.6 SECONDS 25.9-37.7 N (test code = PTT) IS THE PATIENT ON ANY ANTICOAGULANTS? NUA RFLX MICR CULT IF [id number] 03:34:00 Test Item Value Reference Range Interpretation Comments UA COLOR (test code = COLU) Light-Alma YELLOW UA APPEARANCE (test code = Ex.Turbid CLEAR APPU) UA GLUCOSE DIPSTICK (test Normal NORMAL code = DGLUU) UA BILIRUBIN DIPSTICK (test Negative NEGATIVE code = BILU) UA KETONE DIPSTICK (test Negative NEGATIVE code = KETU) UA SPECIFIC GRAVITY (test 1.025 1.000-1.032 N code = SGU) UA BLOOD DIPSTICK (test code Negative NEGATIVE = GUERA) UA PH DIPSTICK (test code = 8.0 5.0-9.0 N POORNIMA) UA PROTEIN DIPSTICK (test 20 MG/DL NEGATIVE A code = PROU) UA UROBILINIOGEN DIPSTICK Normal NORMAL (test code = URO) UA NITRITE DIPSTICK (test Negative NEGATIVE code = RITESH) UA LEUKOCYTE ESTERASE Negative NEGATIVE DIPSTICK (test code = LEUU) UA WBC (test code = WBCU) 0-2 0-5 UA CULTURE NEEDED? (test Criteria not met code = UACULT) SOURCE: URINESPECIMEN DESCRIPTION: CMCIndication for culture: Suprapubic PainUA [id number] 03:34:00 Test Item Value Reference Range Interpretation Comments UA RBC (test code = RBCU) 0-2 0-5 UA EPITHELIAL CELLS (test code = EPIU) 3-5 0-10 UA AMORPHOUS SEDIMENT (test code = OCC NONE-FEW AMORU) UA YEAST (test code = YEASTU) MANY NONE SEEN SOURCE: URINESPECIMEN DESCRIPTION: CMCIndication for culture: Suprapubic PainCBC W/AUTO [id number] 03:26:00 Test Item Value Reference Range Interpretation Comments WHITE BLOOD CELL (test code = 7.2 K/mm3 4.8-10.8 N WBC) RED BLOOD CELL (test code = RBC) 4.56 M/mm3 4.2-5.4 N HEMOGLOBIN (test code = HGB) 12.0 gm/DL 12.0-16.0 N HEMATOCRIT (test code = HCT) 38.2 % 34.7-43.3 N MEAN CELL VOLUME (test code = 83.8 fL 81-99 N MCV) MEAN CELL HGB (test code = MCH) 26.3 pg 27-31 L MEAN CELL HGB CONCETRATION (test 31.4 gm/dL 33-37 L code = MCHC) RED CELL DISTRIBUTION WIDTH (test 14.7 % 11.5-14.5 H code = RDW) PLATELET COUNT (test code = PLT) 283 X10(3) 130-400 N MEAN PLATELET VOLUME (test code = 9.0 fL 9.4-12.4 L MPV) NEUTROPHIL % (test code = NT%) 44.8 % 51.5-79.7 L IMMATURE GRANULOCYTE % (test code 0.100 % 0.108-0.322 L = IG%) LYMPHOCYTE % (test code = LY%) 44.8 % 14-40 H MONOCYTE % (test code = MO%) 7.3 % 4.0-10.2 N EOSINOPHIL % (test code = EO%) 2.2 % 0-4.1 N BASOPHIL % (test code = BA%) 0.8 % 0.1-0.7 H NUCLEATED RBC % (test code = 0.0 % 0-0 N NRBC%) NEUTROPHIL # (test code = NT#) 3.2 K/mm3 2.5-8.6 N IMMATURE GRANULOCYTE # (test code 0.010 K/mm3 0.0052-0.0224 N = IG#) LYMPHOCYTE # (test code = LY#) 3.2 K/mm3 1.1-3.6 N MONOCYTE # (test code = MO#) 0.5 K/mm3 0.3-0.9 N EOSINOPHIL # (test code = EO#) 0.16 # 0.0-0.4 N BASOPHIL # (test code = BA#) 0.06 K/mm3 0.0-0.2 N NUCLEATED RBC # (test code = 0.00 K/mm3 0.00-0.20 N NRBC#) - XR HAND 3+V [id number] 19:20:00 [facility] 1985 Sex: F FAX: Oh Mcdowell MD: GABRIELA St: REG Name: NELIDA JUSTICE [facility] : 1985 Age/S: 36/F [address] Unit #: [id number] Loc: [place], [place] [address] Phys: Oh Helm MD Acct: [id number] Dis Date: Status: REG ER PHONE #: [phone] Exam Date: 06/04/2022 1904 FAX #: [phone] Reason: right 4th digit injury EXAMS: CPT CODE: [id number] XR HAND 3+[place] [address] Location code: H5 Right hand 3 views: Indication: right 4th digit injury Comparison: none Findings: No evidence of fracture, subluxation, or dislocation. Joint spaces are preserved. No joint effusion. Articular surfaces are smooth. Soft tissue swelling over the dorsum of the proximal interphalangeal joint of the 4th digit Impression: 1. Soft tissue swelling dorsal to the proximal interphalangeal joint of the 4th digit. Bone is intact. at 1920 Reported and signedby: ROSE REID MD CC: Oh Helm MD Technologist: ANDRE OGDEN RT,(R) ARRT TranscribedDate/Time/By: 06/04/2022 (1919) :[email or web address] Orig Print D/T: S: 06/04/2022 (1922) Automated exposure control, iterative reconstruction technique, and/oradjustment of mA and/or kV according to patient's size was utilizedfor optimum radiation dose reduction. PAGE 1 Signed ReportCOVID 19 Asymptomatic IH [id number] 03:09:00 Test Item Value Reference Interpretation Comments Range COVID 19 Presumptive Presump.Neg Results are for the Asymptomatic IH Negative identificati on of AG (test code = YLOA-HeZ-4qc cleocapsid COVNONPUIAG) protein antigen . Antigen is generallydetect able in upper respirato ry specimens durin g the acutephase of infection. Posi tive results indicat e the presenceof manolo l antigens, but c linical correlation wit h patienthistory and other diagnosti c information is necessary todet ermine infection statu s. Positive result s do not rule outbacteri al infection or co-infection wi th other viruses. Theage nt detected may no t be the definite cause of disease.Bishop waggoner within the Unit [facility] and its territoriesare required to report all p ositive results to thenorth[facility] hospital public health authorit ies. Negative result s should be treated as presumptive andconfirmed wi th molecular assay , if necessary for patientmanageme nt. Negative result s do not rule out COVID- 19 andshould not b e used as the sole bas is for treatment orpat ient management deci sions, including infec tion controldecision s. Negative result s should be considered i n thecontext of a patient's recen t exposures, hist ory andpresence of clinical signs and sympt oms consistent withCOVID-19. T he Faye SARS Antigen FI A is intended for us e by trainedclinical personnel and individuals tra ined in point of carese ttings. The Faye SARS Antigen HARRIETT is only for use underthe Food a nd Drug Administration' s Emergency UseAuthorizatio n. LOT # [id number].DATE 10/10/22PROCEDURAL CONTROL ACCEPTABLE Y/N Y- US ABDOMEN LTD 2022-03-28 02:45:00 [facility] Kevin : 1985 Sex: F Avella: JULIO St: REG Name: NELIDA PERSAUD [facility] : 1985 Age/S: 36/F [address] Unit #: [id number] Loc: OBED [place], [place] [address] Phys: Eva Ryder MD Acct: [id number] Dis Date: Status: REG ER PHONE #: [phone] Exam Date: 03/28/2022241 FAX #: [phone] Reason: PAIN EXAMS: CPT CODE: [id number] US ABDOMEN LTD 68205 ULTRASOUND: - US ABDOMEN LTD History: PAIN Comparison: None. Findings: The limitedly visualized portion of the liver has relatively increased echogenicity. No intrahepatic ductal dilation is seen. Cholelithiasis is noted.. There is no gallbladder wall thickening or pericholecystic free fluid The common bile duct measures 2 mm The pancreas is incompletely visualized. The right kidney measuring 8.6 cm there is no hydronephrosis. Visualized portions of the aorta and IVC are normal. Impression: No sonographic evidence of acute cholecystitis The appearance the liver is nonspecific but may reflect steatosis versus underlying parenchymal disease at 0245 Reported and signed by: CEM MAGANA M.D. Facility ACR Accreditation for Ultrasound - April 2011 CC: Eva Su MD; Shonda Rivas Technologist: Chelsea Owen RT(R)RDMS,RVT Transcribed Date/Time/By: 03/28/2022 (0245) : By: [email or web address] Orig Print D/T: S: 03/28/2022 (0249) PAGE 1 Signed ReportHCG [id number] 02:38:00 Test Item Value Reference Range Interpretation Comments HCG SERUM (test <1 mIU/mL <5 Reporting Un its: code = HCG) micro-internati onal units/mL Concen tration of beta-HCG if hea lthy non- fe maleis less than 5 micro-in ternational units/mL. Weeks Post LMP Approx hCG Rang e(Last Menstrual Perio d) micro-internati onal units/mL======= ===== == 3-4 weeks 9 - 130 4-5 weeks 75 - 2,60 0 5-6 weeks 850 - 20,800 6- 7 weeks 4,000 - 100,200 7-12 weeks 11,500 - 289,00 012-16 weeks 18,300 - 137,07891-82 we eks 1,400 - 53,000(2nd Trim maritza)29-41 weeks 940 - 60, 000(3rd Trimester) BASIC METABOLIC [id number] 02:37:00 Test Item Value Reference Range Interpretation Comments SODIUM (test code = 140 mmol/L 136-145 N NA) POTASSIUM (test code 3.7 mmol/L 3.5-5.1 N = K) CHLORIDE (test code 111 mmol/L 98-107 H = CL) CARBON DIOXIDE (test 24 mmol/L 21-32 N code = CO2) GLUCOSE (test code = 129 mg/dL 65-99 H GLU) BLOOD UREA NITROGEN 17 mg/dL 7-18 N (test code = BUN) GLOMERULAR 114 The Glomerular FILTRATION RATE Filtration R ate is a (test code = GFR) calculated parameterbased on serum Creatinine, pat ient age and sex. GFR va luesless than 60 mL/min/ 1.73 square meters a re indicative ofCh ronic Kidney Disease. Values less than 15 mL/min/1.73squa re meters indicate Kidney failure. The calculation for GFR is based on the CK D-EPI (2020) calculat ion. This formulais race indifferent and is the recommended for vivian for GFRby the Nat nal Kidney Foundati on for Adults.The GFR will not calculate if th e sex is unknown or if thepatient's ag e is <18 years. CREATININE (test 0.7 mg/dL 0.6-1.0 N code = CREAT) CALCIUM (test code = 8.5 mg/dL 7.8-10.9 N CA) HEPATIC FUNCTION [id number] 02:37:00 Test Item Value Reference Range Interpretation Comments TOTAL PROTEIN (test 7.2 g/dL 6.4-8.2 N code = PROT) ALBUMIN (test code = 3.8 g/dL 3.4-5.0 N ALB) GLOBULIN (test code = 3.4 gm/dL 2.3-3.5 N GLOB) ALBUMIN/GLOBULIN 1.1 1.5-2.2 L RATIO (test code = A/G) BILIRUBIN TOTAL (test 0.2 mg/dL 0.0-1.1 N code = BILT) BILIRUBIN DIRECT <0.1 mg/dL 0.05-0.3 N (test code = BILD) BILIRUBIN INDIRECT 0.1 mg/dL 0.0-0.6 N (test code = BILIND) SGOT/AST (test code = 16 U/L 15-37 N Report ing units: AST) International U nits/L SGPT/ALT (test code = 25 U/L 10-30 N Report ing units: ALT) International U nits/L ALKALINE PHOSPHATASE 78 U/L 45-117 N TOTAL (test code = ALKP) [id number] 02:37:00 Test Item Value Reference Range Interpretation Comments LIPASE (test code = 336 U/L 73-393 N Reportin g units: LIP) International U nits/L UA [id number] 02:24:00 Test Item Value Reference Range Interpretation Comments UA RBC (test code = RBCU) 3-5 0-5 UA EPITHELIAL CELLS (test code = EPIU) 0-2 0-10 UA BACTERIA (test code = BACU) OCC NONE SEEN SOURCE: URINESPECIMEN DESCRIPTION: CMCIndication for culture: RiskForSepsis-no oth srcUA RFLX MICR CULT IF [id number] 02:24:00 Test Item Value Reference Range Interpretation Comments UA COLOR (test code = COLU) Light-Yellow YELLOW UA APPEARANCE (test code = Clear CLEAR APPU) UA GLUCOSE DIPSTICK (test Normal NORMAL code = DGLUU) UA BILIRUBIN DIPSTICK (test Negative NEGATIVE code = BILU) UA KETONE DIPSTICK (test Negative NEGATIVE code = KETU) UA SPECIFIC GRAVITY (test 1.023 1.000-1.032 N code = SGU) UA BLOOD DIPSTICK (test code Negative NEGATIVE = GUERA) UA PH DIPSTICK (test code = 8.0 5.0-9.0 N POORNIMA) UA PROTEIN DIPSTICK (test Negative NEGATIVE code = PROU) UA UROBILINIOGEN DIPSTICK Normal NORMAL (test code = URO) UA NITRITE DIPSTICK (test Negative NEGATIVE code = RITESH) UA LEUKOCYTE ESTERASE Negative NEGATIVE DIPSTICK (test code = LEUU) UA WBC (test code = WBCU) 0-2 0-5 UA CULTURE NEEDED? (test Criteria not met code = UACULT) SOURCE: URINESPECIMEN DESCRIPTION: CMCIndication for culture: RiskForSepsis-no [facility] W/AUTO [id number] 02:16:00 Test Item Value Reference Range Interpretation Comments WHITE BLOOD CELL (test code = 8.4 K/mm3 4.8-10.8 N WBC) RED BLOOD CELL (test code = RBC) 4.43 M/mm3 4.2-5.4 N HEMOGLOBIN (test code = HGB) 11.5 gm/DL 12.0-16.0 L HEMATOCRIT (test code = HCT) 36.7 % 34.7-43.3 N MEAN CELL VOLUME (test code = 82.8 fL 81-99 N MCV) MEAN CELL HGB (test code = MCH) 26.0 pg 27-31 L MEAN CELL HGB CONCETRATION (test 31.3 gm/dL 33-37 L code = MCHC) RED CELL DISTRIBUTION WIDTH (test 14.0 % 11.5-14.5 N code = RDW) PLATELET COUNT (test code = PLT) 262 X10(3) 130-400 N MEAN PLATELET VOLUME (test code = 9.3 fL 9.4-12.4 L MPV) NEUTROPHIL % (test code = NT%) 55.7 % 51.5-79.7 N IMMATURE GRANULOCYTE % (test code 0.200 % 0.108-0.322 N = IG%) LYMPHOCYTE % (test code = LY%) 34.4 % 14-40 N MONOCYTE % (test code = MO%) 7.7 % 4.0-10.2 N EOSINOPHIL % (test code = EO%) 1.4 % 0-4.1 N BASOPHIL % (test code = BA%) 0.6 % 0.1-0.7 N NUCLEATED RBC % (test code = 0.0 % 0-0 N NRBC%) NEUTROPHIL # (test code = NT#) 4.7 K/mm3 2.5-8.6 N IMMATURE GRANULOCYTE # (test code 0.020 K/mm3 0.0052-0.0224 N = IG#) LYMPHOCYTE # (test code = LY#) 2.9 K/mm3 1.1-3.6 N MONOCYTE # (test code = MO#) 0.7 K/mm3 0.3-0.9 N EOSINOPHIL # (test code = EO#) 0.12 # 0.0-0.4 N BASOPHIL # (test code = BA#) 0.05 K/mm3 0.0-0.2 N NUCLEATED RBC # (test code = 0.00 K/mm3 0.00-0.20 N NRBC#)
[2023-02-06] MEDS ORDERED: KETOROLAC 30 MG/ML INJ ONE (19:25)
[2023-02-06] MEDS ORDERED: NA CHLORIDE 0.9% 1,000 ML ONE (19:25)
[2023-02-06 19:38] LABS: SARS-CoV-2 Antigen Rapid Res Negative (Negative)
--- NOTE | 2023-02-06 19:47 | EDPHYS ---
Physician Documentation [facility] Name: Michaelle Vega Age: 37 yrs Sex: Female : 1985 Arrival Date: 02/06/2023 Time: 18:23 Bed 17 Private MD: ED Physician Nader Hairston HPI: 02/06 19:48 This 37 yrs old Female presents to ER via Ambulatory with complaints of Flu sb4 Symptoms. 20:25 The patient or guardian reports cough, flu symptoms, arthralgias, low-grade fever, sb4 myalgias. Onset: The symptoms/episode began/occurred 2 day(s) ago. Modifying factors: The symptoms are alleviated by nothing, the symptoms are aggravated by nothing. Associated signs and symptoms: Pertinent positives: sore throat, Pertinent negatives: chest pain, diarrhea. The patient has not experienced similar symptoms in the past. The patient has not recently seen a physician. Historical: - Allergies: 18:34 No Known Allergies; ss - Home Meds: 18:34 None [Active]; ss - PMHx: 18:34 None; ss - PSHx: 18:34 Cholecystectomy; ss - Immunization history:: Client reports having NOT received the Covid vaccine. - Social history:: Smoking status: Patient denies any tobacco usage or history of. ROS: 20:25 Cardiovascular: Negative for chest pain, palpitations, and edema, sb4 20:25 Constitutional: Positive for body aches, fatigue, malaise, 20:25 ENT: Positive for sinus congestion, sinus pain, sore throat, 20:25 Respiratory: Positive for cough, 20:25 All other systems are negative, Exam: 20:25 Head/Face: Normocephalic, atraumatic. Cardiovascular: Regular rate and rhythm with a sb4 normal S1 and S2. Respiratory: Lungs have equal breath sounds bilaterally, clear to auscultation and percussion. No rales, rhonchi or wheezes noted. No increased work of breathing, no retractions or nasal flaring. Skin: Warm, dry with normal turgor. Normal color with no rashes, no lesions, and no evidence of cellulitis. MS/ Extremity: Pulses equal, no cyanosis. Neurovascular intact. Full, normal range of motion. 20:25 Constitutional: The patient appears alert, awake, uncomfortable, 20:25 Eyes: Conjunctiva: injected, tearing noted, bilaterally, 20:25 ENT: Nose: nasal drainage, that is moderate, and is seen coming from both nares, Posterior pharynx: erythema, that is mild, Vital Signs: 18:32 BP 134 / 94; Pulse 75; Resp 16; Temp 98.6(TE); Pulse Ox 99% on R/A; Weight 70.76 kg; ss Height 5 ft. 4 in. ; Pain 8/10; 18:38 BP 130 / 77; Pulse 97; Resp 17; Temp 99.1(O); Pulse Ox 98% ; Pain 8/10; tm6 19:00 BP 123 / 73; Pulse 93; Resp 18; Pulse Ox 98% ; vc1 20:10 BP 119 / 76; Pulse 71; Resp 18; Pulse Ox 100% ; vc1 18:32 Body Mass Index 26.78 (70.76 kg, 162.56 cm) ss 18:32 Pain Scale: Adult ss 18:38 Pain Scale: Adult tm6 MDM: 18:35 Patient medically screened. sb4 20:25 Differential Diagnosis: Influenza Upper Respiratory Infection Sinusitis. Data reviewed: sb4 vital signs, nurses notes, lab test result(s), and as a result, I will discharge patient. Counseling: I had a detailed discussion with the patient and/or guardian regarding the historical points, exam findings, and any diagnostic results supporting the discharge/admit diagnosis, lab results, to return to the emergency department if symptoms worsen or persist or if there are any questions or concerns that arise at home. 02/06 19:04 Order name: SARS RAPID; Complete Time: 19:38 [facility] [place] 02/06 19:04 Order name: Flu; Complete Time: 19:38 sb4 02/06 19:04 Order name: Strep; Complete Time: 19:38 [facility] 02/06 19:40 Order name: Throat Culture EDMS Administered Medications: 19:21 Drug: NS 0.9% IV 1000 ml IV at 1 bolus Per protocol; 1000 mL bolus Route: IV; Rate: 1 vc1 bolus; Site: right antecubital; 20:13 Follow up: IV Status: Completed infusion; IV Intake: 500ml vc1 19:21 Drug: Ketorolac IVP 15 mg IVP once Route: IVP; Site: right antecubital; vc1 20:13 Follow up: Response: No adverse reaction vc1 19:48 Drug: Oseltamivir PO 75 mg PO once Route: PO; vc1 20:13 Follow up: Response: No adverse reaction vc1 Disposition Summary: 02/06/23 19:46 Discharge Ordered Notes: Location: Home sb4 Problem: an ongoing problem sb4 Symptoms: have improved sb4 Condition: Stable sb4 Diagnosis - Influenza A sb4 Followup: sb4 - With: Emergency Department - When: As needed - Reason: Trouble breathing, Worsening of condition Discharge Instructions: - Discharge Summary Sheet sb4 - Influenza, Adult, [id number] sb4 Forms: - Medication Reconciliation Form sb4 - Thank You Letter sb4 - Antibiotic Education sb4 - Prescription Opioid Use sb4 - Patient Portal Instructions sb4 - Leadership Thank You Letter sb4 Prescriptions: - Tamiflu 75 mg Oral capsule - take 1 tablet ORAL route every 12 hours for 5 days; 10 tablet; Refills: 0, sb4 Product Selection Permitted Addendum: 02/08/2023 07:42 I was immediately available for consultation during this patient's visit. I did not e c2 personally see the patient or guide the patient's care.. Signatures: Dispatcher [employer] Vikki Chris RN RN ss Zahida Moreno RN RN vc1 Angeles Ngo PA-C PA-C sb4 Nader Hairston MD MD ec2
--- NOTE | 2023-02-06 19:47 | ER ---
Nurse's Notes [facility] Name: Michaelle Vega Age: 37 yrs Sex: Female : 1985 Arrival Date: 02/06/2023 Time: 18:23 Bed 17 Private MD: Diagnosis: Influenza A Presentation: 02/06 18:32 Chief complaint: Patient states: congestion, headache, sore throat and feeling hot ss since Tuesday. Coronavirus screen: Client denies travel out of the [place] in the last 14 days. Ebola Screen: Patient denies exposure to infectious person. Patient denies travel to an Ebola-affected area in the 21 days before illness onset. Initial Sepsis Screen: Does the patient meet any 2 criteria? No. Patient's initial sepsis screen is negative. Does the patient have a suspected source of infection? No. Patient's initial sepsis screen is negative. Risk Assessment: Do you want to hurt yourself or someone else? Patient reports no desire to harm self or others. Onset of symptoms was February 04, 2023. 18:32 Method Of Arrival: Ambulatory ss 18:32 Acuity: RAJESH 4 ss Historical: - Allergies: 18:34 No Known Allergies; ss - Home Meds: 18:34 None [Active]; ss - PMHx: 18:34 None; ss - PSHx: 18:34 Cholecystectomy; ss - Immunization history:: Client reports having NOT received the Covid vaccine. - Social history:: Smoking status: Patient denies any tobacco usage or history of. Screenin:46 [facility] ED Fall Risk Assessment (Adult) History of falling in the last 3 months, tm6 including since admission No falls in past 3 months (0 pts). Abuse screen: Denies threats or abuse. Denies injuries from another. Nutritional screening: No deficits noted. Tuberculosis screening: No symptoms or risk factors identified. Assessment: 18:46 General: Appears in no apparent distress. Behavior is calm, cooperative. Pain: tm6 Complains of pain in face Pain currently is 8 out of 10 on a pain scale. Quality of pain is described as aching. Neuro: Level of Consciousness is awake, alert, obeys commands, Oriented to person, place, time, situation. Cardiovascular: Capillary refill < 3 seconds Patient's skin is warm and dry. Respiratory: Airway is patent Respiratory effort is even, unlabored, Respiratory pattern is regular, symmetrical. GI: Abdomen is flat, non-distended. : No signs and/or symptoms were reported regarding the genitourinary system. EENT: No signs and/or symptoms were reported regarding the EENT system. Derm: No signs and/or symptoms reported regarding the dermatologic system. Musculoskeletal: No signs and/or symptoms reported regarding the musculoskeletal system. 19:22 Reassessment: Patient and/or family updated on plan of care and expected duration. Pain vc1 level reassessed. Patient is alert, oriented x 3, equal unlabored respirations, skin warm/dry/pink. Respiratory: Reports cough that is. EENT: Reports nasal congestion pain when swallowing. 20:10 Reassessment: No changes from previously documented assessment. Patient and/or family vc1 updated on plan of care and expected duration. Pain level reassessed. Patient is alert, oriented x 3, equal unlabored respirations, skin warm/dry/pink. Vital Signs: 18:32 BP 134 / 94; Pulse 75; Resp 16; Temp 98.6(TE); Pulse Ox 99% on R/A; Weight 70.76 kg; ss Height 5 ft. 4 in. ; Pain 8/10; 18:38 BP 130 / 77; Pulse 97; Resp 17; Temp 99.1(O); Pulse Ox 98% ; Pain 8/10; tm6 19:00 BP 123 / 73; Pulse 93; Resp 18; Pulse Ox 98% ; vc1 20:10 BP 119 / 76; Pulse 71; Resp 18; Pulse Ox 100% ; vc1 18:32 Body Mass Index 26.78 (70.76 kg, 162.56 cm) ss 18:32 Pain Scale: Adult ss 18:38 Pain Scale: Adult tm6 ED Course: 18:27 Patient arrived in ED. mg5 18:27 Angeles Ngo PA-C is PHCP. sb4 18:27 Nader Hairston MD is Attending Physician. sb4 18:34 Triage completed. ss 18:34 Arm band placed on right wrist. ss 18:36 Dereck Gresham, SAULO is Primary Nurse. tm6 18:46 Patient has correct armband on for positive identification. Bed in low position. Call tm6 light in reach. Side rails up X 1. Provided Education on: need for VS monitoring. Client placed on continuous cardiac and pulse oximetry monitoring. NIBP monitoring applied. Door closed. Noise minimized. 18:46 No provider procedures requiring assistance completed. tm6 19:18 Strep Sent. jr12 19:18 Flu Sent. jr12 19:18 SARS RAPID Sent. jr12 19:22 Strep Sent. vc1 19:22 Flu Sent. vc1 19:22 SARS RAPID Sent. vc1 19:22 Inserted saline lock: 20 gauge in right antecubital area, using aseptic technique. vc1 20:12 IV discontinued, intact, bleeding controlled, No redness/swelling at site. Pressure vc1 dressing applied. Administered Medications: 19:21 Drug: NS 0.9% IV 1000 ml IV at 1 bolus Per protocol; 1000 mL bolus Route: IV; Rate: 1 vc1 bolus; Site: right antecubital; 20:13 Follow up: IV Status: Completed infusion; IV Intake: 500ml vc1 19:21 Drug: Ketorolac IVP 15 mg IVP once Route: IVP; Site: right antecubital; vc1 20:13 Follow up: Response: No adverse reaction vc1 19:48 Drug: Oseltamivir PO 75 mg PO once Route: PO; vc1 20:13 Follow up: Response: No adverse reaction vc1 Medication: 18:46 VIS not applicable for this client. tm6 Intake: 20:13 IV: 500ml; Total: 500ml. vc1 Outcome: 19:46 Discharge ordered by . sb4 20:12 Discharged to home ambulatory, with friend, vc1 20:12 Condition: good 20:12 Discharge instructions given to patient, Instructed on discharge instructions, follow up and referral plans. medication usage, Demonstrated understanding of instructions, follow-up care, medications, Prescriptions given X 1, 20:17 Patient left the ED. vc1 Signatures: Vikki Ac RN RN ss Zahida Moreno RN RN vc1 Angeles Ngo PA-C PAGladis [email or web address] Sia Michael mg5 Rajani Rothman jr12 Dereck Gresham RN RN tm6
[2023-02-06] MEDS ORDERED: OSELTAMIVIR 75 MG CAP PO ONE (20:00)
[2023-02-06 20:36] VITALS: TEMP 99.1
[2023-02-06 20:49] VITALS: BP 119/76; O2SAT 100
== END 2023-02-06 20:17 | disposition home or self-care (01) ==
LOC: ER 18:23
DX: J10.1 Influenza due to other identified influenza virus with other respiratory manifestations (principal); Z11.52 Encounter for screening for COVID-19; Z28.310 Unvaccinated for COVID-19
CPT/HCPCS: 36415; 87070; 87081; 87804; 87811; 96361; 96374; 99284; J7030